=== PATIENT | female | born 1945 | race Caucasian/White ===

== ENCOUNTER 2017-10-14 11:35 | Emergency (ER) | payer MEDICARE ==
[~2017-10-14] VITALS: Ht 157.4 cm; Wt 47.3 kg
[2017-10-14 13:59] LABS: BASO % 0.4 % (0.0-1.0); EOS # 0.3 10*3/uL (0.0-0.4); EOS % 3.5 % (1.0-4.0); HEMATOCRIT 32.9 % (37.0-47.0); HEMOGLOBIN 10.3 g/dl (12.0-16.0); LYMPH # 1.4 10*3/uL (1.3-4.4); LYMPH % 17.7 % (27.0-41.0); MEAN CELL VOLUME 89.2 fl (81.0-99.0); MEAN CORPUSCULAR HGB 27.9 pg (27.0-31.0); MEAN CORPUSCULAR HGB CONC 31.3 g/dl (33.0-37.0); MEAN PLATELET VOLUME 9.7 fl (9.6-12.3); MONO # 0.7 10*3/uL (0.1-1.0); MONO % 8.1 % (3.0-9.0); NEUT # 5.6 10*3/uL (2.3-7.9); NEUT % 69.9 % (47.0-73.0); PLATELET COUNT AUTOMATED 285 10*3/uL (130-400); RED BLOOD COUNT 3.69 10*6/uL (4.10-5.10); RED CELL DISTRI WIDTH 14.7 % (0-14.5)
[2017-10-14 14:13] LABS: ALBUMIN 3.3 gm/dl (3.1-4.5); CREATININE 1.38 mg/dL (0.55-1.02); POTASSIUM 5.2 mmol/L (3.5-5.1)
[2017-10-14 17:17] LABS: ACT PARTIAL THROMBO TIME 23.2 SECONDS (20.8-31.5)
== END 2017-10-14 17:08 ==
LOC: ED 11:35
PROVIDERS: Physician Assistant
DX: I82.412 Acute embolism and thrombosis of left femoral vein (principal); F17.200 Nicotine dependence, unspecified, uncomplicated

== ENCOUNTER → 2019-01-01 | Outpatient (CLI) | payer MEDICARE ==
[~2019-01-01] MED LIST: ASPIR 8181 MG PO; ATENOLOL25 MG PO; COUMADIN7.5 M1 PO; DOXYCYCLINE MO100 M1 PO; HYDR25T PO; HYDROCHLOROTHIA25 M1 PO; KLOR-CON M1010 ME1 PO; LISINOPRIL10 M1 PO; LORATADINE10 M3 PO; METFORMIN ER500 MG PO; MUCINEX ER600 MG PO; PREDNISONE10 MG PO
[2019-01-01 10:12] LABS: BASO % 0.4 % (0.0-1.0); EOS # 0.1 10*3/uL (0.0-0.4); EOS % 1.3 % (1.0-4.0); HEMATOCRIT 35.8 % (37.0-47.0); HEMOGLOBIN 11.2 g/dl (12.0-16.0); LYMPH # 1.6 10*3/uL (1.3-4.4); LYMPH % 19.1 % (27.0-41.0); MEAN CELL VOLUME 92.3 fl (81.0-99.0); MEAN CORPUSCULAR HGB 28.9 pg (27.0-31.0); MEAN CORPUSCULAR HGB CONC 31.3 g/dl (33.0-37.0); MEAN PLATELET VOLUME 10.2 fl (9.6-12.3); MONO # 0.7 10*3/uL (0.1-1.0); MONO % 8.1 % (3.0-9.0); NEUT # 5.9 10*3/uL (2.3-7.9); NEUT % 70.9 % (47.0-73.0); PLATELET COUNT AUTOMATED 289 10*3/uL (130-400); RED BLOOD COUNT 3.88 10*6/uL (4.10-5.10); RED CELL DISTRI WIDTH 13.8 % (0-14.5); WHITE BLOOD COUNT 8.3 10*3/uL (4.8-10.8)
[2019-01-01 10:29] LABS: INTERNATIONAL NORM RATIO 2.9 (2.0-3.5)
[2019-01-01 10:33] LABS: CREATININE 1.69 mg/dL (0.55-1.02)
[2019-01-01 11:16] LABS: VITAMIN D, 25-HYDROXY 32.2 ng/mL (30-100)
== END | disposition home or self-care (01) ==
LOC: RESCLI 02:53 → LAB 02:53 → RESCLI 16:40
PROVIDERS: Internal Medicine
DX: E11.9 Type 2 diabetes mellitus without complications (principal); I10 Essential (primary) hypertension; E55.9 Vitamin D deficiency, unspecified; Z79.01 Long term (current) use of anticoagulants

== ENCOUNTER → 2019-04-01 | Outpatient (CLI) | payer MEDICARE ==
[~2019-04-01] MED LIST changes: +DOXYCYCLINE100 M3 PO; +NORVASC5 MG PO
[2019-04-01 15:22] LABS: INTERNATIONAL NORM RATIO 2.4 (2.0-3.5)
== END | disposition home or self-care (01) ==
LOC: LAB 13:05
PROVIDERS: Internal Medicine Nephrology
DX: Z79.01 Long term (current) use of anticoagulants (principal)

== ENCOUNTER → 2019-05-07 | Outpatient (CLI) | payer MEDICARE | LOC: RAD 16:50 | DX: J43.8 Other emphysema (principal); Z87.891 Personal history of nicotine dependence ==

== ENCOUNTER → 2019-06-08 | Outpatient (CLI) | payer MEDICARE ==
[~2019-06-08] MED LIST changes: -DOXYCYCLINE100 M3 PO; -NORVASC5 MG PO
== END | disposition home or self-care (01) ==
LOC: RESCLI 06-05 10:06
DX: Z09 Encounter for follow-up examination after completed treatment for conditions other than malignant neoplasm (principal); I12.9 Hypertensive chronic kidney disease with stage 1 through stage 4 chronic kidney disease, or unspecified chronic kidney disease; N18.3 Chronic kidney disease, stage 3 (moderate); E11.22 Type 2 diabetes mellitus with diabetic chronic kidney disease; J44.9 Chronic obstructive pulmonary disease, unspecified; F32.5 Major depressive disorder, single episode, in full remission; F17.200 Nicotine dependence, unspecified, uncomplicated; J30.2 Other seasonal allergic rhinitis; S72.001D Fracture of unspecified part of neck of right femur, subsequent encounter for closed fracture with routine healing; I82.502 Chronic embolism and thrombosis of unspecified deep veins of left lower extremity; L30.4 Erythema intertrigo; Z79.899 Other long term (current) drug therapy; Z79.84 Long term (current) use of oral hypoglycemic drugs; Z88.8 Allergy status to other drugs, medicaments and biological substances; X58.XXXD Exposure to other specified factors, subsequent encounter

== ENCOUNTER → 2019-06-10 | Outpatient (CLI) | payer MEDICARE ==
[2019-06-10 16:29] LABS: BASO % 0.1 % (0.0-1.0); HEMATOCRIT 40.8 % (37.0-47.0); HEMOGLOBIN 12.8 g/dl (12.0-16.0); LYMPH # 0.9 10*3/uL (1.3-4.4); LYMPH % 9.4 % (27.0-41.0); MEAN CELL VOLUME 90.5 fl (81.0-99.0); MEAN CORPUSCULAR HGB 28.4 pg (27.0-31.0); MEAN CORPUSCULAR HGB CONC 31.4 g/dl (33.0-37.0); MEAN PLATELET VOLUME 10.8 fl (9.6-12.3); MONO # 0.1 10*3/uL (0.1-1.0); MONO % 1.4 % (3.0-9.0); NEUT # 8.8 10*3/uL (2.3-7.9); NEUT % 88.6 % (47.0-73.0); PLATELET COUNT AUTOMATED 324 10*3/uL (130-400); RED BLOOD COUNT 4.51 10*6/uL (4.10-5.10); RED CELL DISTRI WIDTH 14.6 % (0-14.5); WHITE BLOOD COUNT 9.9 10*3/uL (4.8-10.8)
[2019-06-10 16:42] LABS: INTERNATIONAL NORM RATIO 2.1 (2.0-3.5)
[2019-06-10 16:57] LABS: ALBUMIN 3.5 gm/dl (3.1-4.5); CREATININE 2.2 mg/dL (0.55-1.02); POTASSIUM 5.9 mmol/L (3.5-5.1); TOTAL PROTEIN 6.8 gm/dL (6.4-8.2)
== END | disposition home or self-care (01) ==
LOC: RESCLI 00:51
PROVIDERS: Hospitalist
DX: I12.9 Hypertensive chronic kidney disease with stage 1 through stage 4 chronic kidney disease, or unspecified chronic kidney disease (principal); E11.22 Type 2 diabetes mellitus with diabetic chronic kidney disease; N18.3 Chronic kidney disease, stage 3 (moderate); J44.9 Chronic obstructive pulmonary disease, unspecified; F17.200 Nicotine dependence, unspecified, uncomplicated; Z79.899 Other long term (current) drug therapy; Z88.8 Allergy status to other drugs, medicaments and biological substances

== ENCOUNTER 2019-06-11 11:33 | Emergency (ER) | payer MEDICARE ==
[~2019-06-11] VITALS: Ht 157.4 cm; Wt 46.3 kg
--- NOTE | ~2019-06-11 | EKG ---
[place], [place] ELECTROCARDIOGRAM REPORT NAME: GEOFFREY BEGUM UNIT #: [id number] ROOM: DOCTOR: BRISA DRAFT REPORT BIRTHDATE: [birth year] [facility] Test Date: 2019-06-11 Test Time: 12:03:37 Pat Name: GEOFFREY BEGUM Department: Room: Gender: F Paid Internship: : 1945 Requested By: DELIO WATSON Order Number: [id number] Reading MD: Jared Pierson MD Measurements Intervals [place] Rate: 79 P: 90 NM: 126 QRS: 66 QRSD: 85 T: 67 QT: 371 QTc: 426 Interpretive Statements Sinus rhythm Right atrial enlargement Low voltage, extremity leads Minimal ST elevation, anterior leads Compared to ECG 05/29/2019 20:55:03 Atrial abnormality now present Sinus tachycardia no longer present ST (T wave) deviation still present Electronically Signed On 06-15-2019 8:38:27 PDT by Jared Pierson MD CM:EKGRPT:ELECTROCARDIOGRAM REPORT [id number] DELIO THOMPSON DRAFT REPORT DELIO WATSON DO
[~2019-06-11 11:33] MED LIST changes: -HYDR25T PO
[2019-06-11 12:03] LABS: BASO % 0.2 % (0.0-1.0); EOS % 0.4 % (1.0-4.0); HEMATOCRIT 42.3 % (37.0-47.0); HEMOGLOBIN 13.3 g/dl (12.0-16.0); LYMPH # 3.4 10*3/uL (1.3-4.4); LYMPH % 30.8 % (27.0-41.0); MEAN CELL VOLUME 91.2 fl (81.0-99.0); MEAN CORPUSCULAR HGB 28.7 pg (27.0-31.0); MEAN CORPUSCULAR HGB CONC 31.4 g/dl (33.0-37.0); MEAN PLATELET VOLUME 10.3 fl (9.6-12.3); MONO # 0.9 10*3/uL (0.1-1.0); MONO % 8.1 % (3.0-9.0); NEUT # 6.7 10*3/uL (2.3-7.9); NEUT % 60.1 % (47.0-73.0); PLATELET COUNT AUTOMATED 319 10*3/uL (130-400); RED BLOOD COUNT 4.64 10*6/uL (4.10-5.10); RED CELL DISTRI WIDTH 14.6 % (0-14.5); WHITE BLOOD COUNT 11.1 10*3/uL (4.8-10.8)
[2019-06-11 12:14] LABS: ACT PARTIAL THROMBO TIME 29.3 SECONDS (20.0-32.1)
[2019-06-11 12:21] LABS: ALBUMIN 3.5 gm/dl (3.1-4.5); ALKALINE PHOSPHATASE 85 U/L (45-117); BUN 65 mg/dl (7-24); CHLORIDE 106 mmol/L (98-107); CREATININE 2.23 mg/dL (0.55-1.02); LIPASE 228 U/L (73-393); SGOT/AST 13 IU/L (3-35); SGPT/ALT 21 U/L (12-78); SODIUM 136 mmol/L (136-145); TOTAL PROTEIN 6.7 gm/dL (6.4-8.2)
[2019-06-11 12:23] LABS: POTASSIUM 4.7 mmol/L (3.5-5.1); TROPONIN I < 0.015 ng/ml (<0.045)
== END 2019-06-11 13:34 | disposition home or self-care (01) ==
LOC: ED 11:33
PROVIDERS: Emergency Medicine
DX: E87.5 Hyperkalemia (principal); I12.9 Hypertensive chronic kidney disease with stage 1 through stage 4 chronic kidney disease, or unspecified chronic kidney disease; E11.22 Type 2 diabetes mellitus with diabetic chronic kidney disease; N18.3 Chronic kidney disease, stage 3 (moderate); J44.9 Chronic obstructive pulmonary disease, unspecified; I48.91 Unspecified atrial fibrillation; F17.210 Nicotine dependence, cigarettes, uncomplicated; Z79.4 Long term (current) use of insulin; Z79.899 Other long term (current) drug therapy; Z79.01 Long term (current) use of anticoagulants

== ENCOUNTER → 2019-06-15 | Outpatient (CLI) | payer MEDICARE ==
[~2019-06-15] MED LIST changes: +HYDR25T PO
[2019-06-15 16:37] LABS: BILIRUBIN NEGATIVE (NEGATIVE); BLOOD TRACE-INTACT (NEGATIVE); CLARITY CLEAR (CLEAR); COLOR YELLOW (YELLOW); GLUCOSE NEGATIVE (NEGATIVE); KETONE NEGATIVE (NEGATIVE); LEUKO ESTERASE 1+ (NEGATIVE); NITRITE NEGATIVE (NEGATIVE); SPECIFIC GRAVITY 1.015 (1.005-1.030); UROBILINOGEN 0.2 E.U./dl (0.2-1.0)
[2019-06-15 17:00] LABS: CREATININE 1.86 mg/dL (0.55-1.02); POTASSIUM 5.3 mmol/L (3.5-5.1)
[2019-06-15 17:10] LABS: BACTERIA 1+
== END | disposition home or self-care (01) ==
LOC: LAB 16:10
PROVIDERS: Emergency Medicine; Hospitalist
DX: E11.22 Type 2 diabetes mellitus with diabetic chronic kidney disease (principal); N18.9 Chronic kidney disease, unspecified; E87.5 Hyperkalemia

== ENCOUNTER 2019-06-24 14:54 | Emergency (ER) | payer MEDICARE ==
[~2019-06-24] VITALS: Ht 157.4 cm; Wt 47.2 kg
--- NOTE | ~2019-06-24 | EKG ---
[place], [place] ELECTROCARDIOGRAM REPORT NAME: GEOFFREY BEGUM UNIT #: [id number] ROOM: DOCTOR: EPIPHANY DRAFT REPORT BIRTHDATE: [birth year] [facility] Test Date: 2019-06-24 Test Time: 15:50:47 Pat Name: GEOFFREY BEGUM Department: Room: Gender: F Medical Billing Specialist: Estela Black : 1945 Requested By: ALAINA GEE DNP Order Number: [id number] Reading MD: Ok Lindquist MD Measurements Intervals [place] Rate: 97 P: 84 RI: 138 QRS: 58 QRSD: 75 T: 69 QT: 358 QTc: 455 Interpretive Statements Sinus rhythm Borderline low voltage, extremity leads Electronically Signed On 06-25-2019 5:36:18 PDT by Ok Lindquist MD CM:EKGRPT:ELECTROCARDIOGRAM REPORT [id number] ALAINA LEDEZMA DRAFT REPORT ALAINA GEE DNP
[~2019-06-24 14:54] MED LIST changes: -HYDR25T PO
[2019-06-24 15:47] LABS: BASO % 0.4 % (0.0-1.0); EOS # 0.3 10*3/uL (0.0-0.4); EOS % 3.9 % (1.0-4.0); HEMATOCRIT 31.9 % (37.0-47.0); HEMOGLOBIN 9.9 g/dl (12.0-16.0); LYMPH # 1.5 10*3/uL (1.3-4.4); LYMPH % 18.1 % (27.0-41.0); MEAN CELL VOLUME 92.7 fl (81.0-99.0); MEAN CORPUSCULAR HGB 28.8 pg (27.0-31.0); MEAN PLATELET VOLUME 9.1 fl (9.6-12.3); MONO # 0.6 10*3/uL (0.1-1.0); MONO % 6.7 % (3.0-9.0); NEUT # 5.9 10*3/uL (2.3-7.9); PLATELET COUNT AUTOMATED 309 10*3/uL (130-400); RED BLOOD COUNT 3.44 10*6/uL (4.10-5.10); RED CELL DISTRI WIDTH 14.5 % (0-14.5); WHITE BLOOD COUNT 8.5 10*3/uL (4.8-10.8)
[2019-06-24 16:03] LABS: ALKALINE PHOSPHATASE 108 U/L (45-117); BUN 24 mg/dl (7-24); CHLORIDE 110 mmol/L (98-107); CREATININE 1.64 mg/dL (0.55-1.02); LIPASE 157 U/L (73-393); SGOT/AST 10 IU/L (3-35); SGPT/ALT 15 U/L (12-78); SODIUM 141 mmol/L (136-145); TOTAL PROTEIN 6.9 gm/dL (6.4-8.2)
[2019-06-24 16:09] LABS: INTERNATIONAL NORM RATIO 3.1 (2.0-3.5)
[2019-06-24 16:13] LABS: TROPONIN I < 0.015 ng/ml (<0.045)
[2019-06-24 17:07] LABS: BILIRUBIN NEGATIVE (NEGATIVE); BLOOD TRACE-INTACT (NEGATIVE); CLARITY CLEAR (CLEAR); COLOR YELLOW (YELLOW); GLUCOSE NEGATIVE (NEGATIVE); KETONE NEGATIVE (NEGATIVE); LEUKO ESTERASE 1+ (NEGATIVE); NITRITE NEGATIVE (NEGATIVE); UROBILINOGEN 0.2 E.U./dl (0.2-1.0)
[2019-06-24 17:21] LABS: BACTERIA TRACE; EPITHELIAL CELLS 0-2; WBC 0-2 wbc/hpf (0-5)
[2019-06-24] MEDS ORDERED: LISINOPRIL10 M1 PO (17:41)
[2019-06-24] MEDS ORDERED: HYDR25T PO (17:41)
== END 2019-06-24 17:42 | disposition home or self-care (01) ==
LOC: ED 14:54
PROVIDERS: Nurse Practitioner Family
DX: R60.0 Localized edema (principal); I10 Essential (primary) hypertension; R06.02 Shortness of breath; J44.9 Chronic obstructive pulmonary disease, unspecified; E11.9 Type 2 diabetes mellitus without complications; F17.200 Nicotine dependence, unspecified, uncomplicated; Z79.899 Other long term (current) drug therapy; Z79.01 Long term (current) use of anticoagulants; Z79.82 Long term (current) use of aspirin; Z86.718 Personal history of other venous thrombosis and embolism

== ENCOUNTER 2019-07-11 11:34 | Inpatient (IN) | payer MEDICARE ==
[~2019-07-11] VITALS: Ht 157.4 cm; Wt 48.6 kg
[~2019-07-11 11:34] MED LIST changes: +HYDR25T PO
[2019-07-11 11:45] LABS: BASO % 0.3 % (0.0-1.0); EOS # 0.5 10*3/uL (0.0-0.4); EOS % 4.4 % (1.0-4.0); HEMATOCRIT 34.1 % (37.0-47.0); HEMOGLOBIN 10.7 g/dl (12.0-16.0); LYMPH # 1.8 10*3/uL (1.3-4.4); LYMPH % 15.3 % (27.0-41.0); MEAN CELL VOLUME 91.2 fl (81.0-99.0); MEAN CORPUSCULAR HGB 28.6 pg (27.0-31.0); MEAN CORPUSCULAR HGB CONC 31.4 g/dl (33.0-37.0); MONO # 0.6 10*3/uL (0.1-1.0); MONO % 4.8 % (3.0-9.0); NEUT # 8.6 10*3/uL (2.3-7.9); NEUT % 74.8 % (47.0-73.0); PLATELET COUNT AUTOMATED 334 10*3/uL (130-400); RED BLOOD COUNT 3.74 10*6/uL (4.10-5.10); RED CELL DISTRI WIDTH 15.2 % (0-14.5); WHITE BLOOD COUNT 11.5 10*3/uL (4.8-10.8)
[2019-07-11 11:51] VITALS: BP 105/48
[2019-07-11 12:15] VITALS: BP 110/52
--- NOTE | 2019-07-11 12:17 | NUR ---
PT PRESENTS SOB WITH POX IN THE 80'S ON ROOM AIR, PT IS NOT HOME O2 DEPENDENT. APPLIED 6L NC POX 98%.
[2019-07-11 12:24] LABS: ACT PARTIAL THROMBO TIME 29.1 SECONDS (20.0-32.1); INTERNATIONAL NORM RATIO 1.7 (2.0-3.5)
[2019-07-11 12:27] LABS: ALBUMIN 3.7 gm/dl (3.1-4.5); ALKALINE PHOSPHATASE 113 U/L (45-117); BUN 45 mg/dl (7-24); CHLORIDE 104 mmol/L (98-107); CREATININE 2.32 mg/dL (0.55-1.02); POTASSIUM 4.6 mmol/L (3.5-5.1); SGOT/AST 13 IU/L (3-35); SGPT/ALT 12 U/L (12-78); SODIUM 136 mmol/L (136-145); TOTAL PROTEIN 7.3 gm/dL (6.4-8.2)
[2019-07-11 12:28] LABS: TROPONIN I < 0.015 ng/ml (<0.045)
[2019-07-11 13:30] VITALS: BP 108/65
[2019-07-11 14:45] VITALS: BP 129/81
--- NOTE | 2019-07-11 14:45 | NUR ---
A 73, admitted to , under the services of JEREMIE Young DO with a diagnosis of COPD EXACERBATION. Chief complaint is SOB. Patient arrived via bed from ER. Monitor applied. Initial assessment completed. Vital signs taken and recorded. JEREMIE YOUNG DO notified of admission to the unit. Orders received. See assessment for past medical history, medications and allergies. Patient and/or family oriented to unit. [facility] visitation policy reviewed. Clothing/patient valuable form completed. DAVIS DOMINIQUE
[2019-07-11 16:00] VITALS: BP 128/50
[2019-07-11 20:00] VITALS: BP 118/56
--- NOTE | 2019-07-11 20:30 | NUR ---
RESTING IN BED WITH HOB ELEVATED & EYES CLOSED. 02 BEING MAINTAINED. NO DISTRESS NOTED. CALL LIGHT WITHIN REACH.
--- NOTE | 2019-07-11 22:00 | NUR ---
RESTING IN BED; AROUSES EASILY TO VERBAL STIMULI. 02 BEING MAINTAINED. PT. VOICES NO C/O AT THIS TIME. CALL LIGHT WITHIN REACH.
[2019-07-12] VITALS: BP 125/53
--- NOTE | 2019-07-12 02:00 | NUR ---
PT. HAS A DRY FREQUENT COUGH; REQUESTING AN AEROSOL TX. CALLED RESPIRATORY.
--- NOTE | 2019-07-12 02:30 | NUR ---
RESTING IN BED; NO VOICED C/O AT THIS TIME. CALL LIGHT WITHIN REACH.
[2019-07-12 04:10] VITALS: BP 131/60
--- NOTE | 2019-07-12 04:10 | NUR ---
PT. AWAKE & ALERT. PT. HAS A FREQUENT HARSH MOIST COUGH PRODUCTIVE FOR WHITE SPUTUM PER PT. 02 BEING MAINTAINED AT 4LITERS & PULSE OX IS 98%. DENIES ANY DISCOMFORT OR CHEST PAIN AT THIS TIME. WILL CONTINUE TO MONITOR. CALL LIGHT WITHIN REACH.
--- NOTE | 2019-07-12 04:17 | NUR ---
CALLED DR. RAMOS PERTAINING TO PATIENT HAVING A 7 RUN BEAT OF VTACH. NO NEW ORDERS RECEIVED.
[2019-07-12 06:23] LABS: BASO % 0.3 % (0.0-1.0); EOS % 0.1 % (1.0-4.0); HEMATOCRIT 30.7 % (37.0-47.0); HEMOGLOBIN 9.3 g/dl (12.0-16.0); LYMPH # 1.1 10*3/uL (1.3-4.4); LYMPH % 14.8 % (27.0-41.0); MEAN CELL VOLUME 91.6 fl (81.0-99.0); MEAN CORPUSCULAR HGB 27.8 pg (27.0-31.0); MEAN CORPUSCULAR HGB CONC 30.3 g/dl (33.0-37.0); MEAN PLATELET VOLUME 10.4 fl (9.6-12.3); MONO # 0.7 10*3/uL (0.1-1.0); NEUT # 5.6 10*3/uL (2.3-7.9); NEUT % 75.4 % (47.0-73.0); PLATELET COUNT AUTOMATED 260 10*3/uL (130-400); RED BLOOD COUNT 3.35 10*6/uL (4.10-5.10); RED CELL DISTRI WIDTH 15.2 % (0-14.5); WHITE BLOOD COUNT 7.4 10*3/uL (4.8-10.8)
[2019-07-12 06:54] LABS: ACT PARTIAL THROMBO TIME 29.4 SECONDS (20.0-32.1)
[2019-07-12 06:58] LABS: ALBUMIN 3.3 gm/dl (3.1-4.5); CREATININE 2.04 mg/dL (0.55-1.02); POTASSIUM 5.1 mmol/L (3.5-5.1); TOTAL PROTEIN 6.5 gm/dL (6.4-8.2)
[2019-07-12 07:12] LABS: PHOSPHOROUS 3.7 mg/dL (2.5-4.9); THYROID STIM HORMONE (HS) 0.374 uIU/ml (0.358-4.75)
[2019-07-12 08:16] LABS: VITAMIN D, 25-HYDROXY 19.6 ng/mL (30-100)
[2019-07-12 12:00] VITALS: BP 132/59; BP 138/59
[2019-07-12 16:00] VITALS: BP 116/60
--- NOTE | 2019-07-12 19:43 | NUR ---
PATIENT RESTING IN BED WITH NO NEEDS. WHEEZES NOTED. BED IN LOWEST POSITION, CALL LIGHT IN REACH
[2019-07-12 20:00] VITALS: BP 131/58
--- NOTE | 2019-07-12 23:54 | NUR ---
24 HR chart check completed.
[2019-07-13] VITALS: BP 159/68
--- NOTE | 2019-07-13 01:24 | NUR ---
PATIENT RESTING IN BED WITH EYES CLOSED. RESPS EASY AND REGULAR. BED IN LOW POSITION, CALL LIGHT IN REACH
[2019-07-13 06:40] LABS: BASO % 0.1 % (0.0-1.0); EOS % 0.1 % (1.0-4.0); HEMATOCRIT 31.9 % (37.0-47.0); HEMOGLOBIN 9.8 g/dl (12.0-16.0); LYMPH # 1.3 10*3/uL (1.3-4.4); MEAN CELL VOLUME 91.7 fl (81.0-99.0); MEAN CORPUSCULAR HGB 28.2 pg (27.0-31.0); MEAN CORPUSCULAR HGB CONC 30.7 g/dl (33.0-37.0); MEAN PLATELET VOLUME 10.5 fl (9.6-12.3); MONO # 0.8 10*3/uL (0.1-1.0); MONO % 8.7 % (3.0-9.0); NEUT # 6.7 10*3/uL (2.3-7.9); NEUT % 75.8 % (47.0-73.0); PLATELET COUNT AUTOMATED 254 10*3/uL (130-400); RED BLOOD COUNT 3.48 10*6/uL (4.10-5.10); RED CELL DISTRI WIDTH 15.2 % (0-14.5); WHITE BLOOD COUNT 8.9 10*3/uL (4.8-10.8)
[2019-07-13 06:58] LABS: ALBUMIN 3.4 gm/dl (3.1-4.5); CREATININE 1.83 mg/dL (0.55-1.02); POTASSIUM 4.5 mmol/L (3.5-5.1); TOTAL PROTEIN 6.7 gm/dL (6.4-8.2)
[2019-07-13 08:00] VITALS: BP 156/62
--- NOTE | 2019-07-13 10:10 | NUR ---
Occupational therapy evaluation completed on floor 5 with full evaluation and POC to follow. Patient precautions include fall risk, 1L O2, and wheeled walker use. Per OT evaluation and POC, OTR recommend home with home health PT/OT. Patient would benefit from continued OT treatment to increase independence in ADLs, functional mobility/transfers, and strength. Patient's evaluation complexity is low, 42240. Thank you for the referral. Betina Calix, OTR/L
--- NOTE | 2019-07-13 10:10 | NUR ---
PHYSICAL THERAPY Physical therapy evaluation complete, 5E. Full evaluation/details to follow. Moderate complexity evaluation (64484) per chart review and evaluation. Recommend PT to progress with gait, transfers, and increased safety per POC. Recommend home health PT/nursing at discharge. Thank you. Anya Gan,PT,DPT.
[2019-07-13 12:00] VITALS: BP 146/70
[2019-07-13 13:20] LABS: INTERNATIONAL NORM RATIO 2.3 (2.0-3.5)
[2019-07-13 16:00] VITALS: BP 156/69
[2019-07-13 20:00] VITALS: BP 149/66
--- NOTE | 2019-07-13 20:00 | NUR ---
PATIENT RESTING IN BED WITH EYES CLOSED. EYES OPEN UPON ENTERING. NO S/S OF DISTRESS. NO SOB NOTED AT REST ON 2L O2. DENIES PAIN AT THIS TIME. NO STATED COMPLAINTS. BED IN LOWEST LOCKED POSITION AND CALL LIGHT WITHIN REACH. WILL CONTINUE TO MONITOR.
--- NOTE | 2019-07-13 20:44 | NUR ---
UPON ENTERING ROOM PT STATES HER IV IS BLEEDING. ON ASSESSMENT THE SITE IS LEAKING. PT STATES SHE CAUGHT IT ON HER SLEEVE. IV D/C AND A NEW ONE STARTED IN R WRIST. NO FAILED ATTEMPTS. GREAT BLOOD RETURN AND FLUSHES WELL.
[2019-07-14] VITALS: BP 155/73
--- NOTE | 2019-07-14 04:42 | NUR ---
PATIENT ASSISTED OOB UP TO BSC. NEW DISPOSABLE BRIEFS PROVIDED PER PT REQUEST, SHE IS EXPERIENCING SOME INCONTINENCE W/ COUGHING. O2 EXTENTION TUBING ALSO BROUGHT INTO ROOM AT THIS TIME PER REQUEST. P PATIENT REMINDED TO SPIT IN CUP FOR SPUTUM SAMPLE TO BE SENT. VERBALIZES UNDERSTANDING. STATES SPUTUM IS CURRENTLY WHITE/IBRAHIM/YELLOW. DENIES ANY NEEDS AT PRESENT TIME. WILL MONITOR. CALL LIGHT IN REACH.
[2019-07-14 06:21] LABS: BASO % 0.3 % (0.0-1.0); EOS % 0.1 % (1.0-4.0); HEMATOCRIT 33.9 % (37.0-47.0); HEMOGLOBIN 10.5 g/dl (12.0-16.0); LYMPH # 1.4 10*3/uL (1.3-4.4); LYMPH % 12.4 % (27.0-41.0); MEAN CELL VOLUME 89.9 fl (81.0-99.0); MEAN CORPUSCULAR HGB 27.9 pg (27.0-31.0); MEAN PLATELET VOLUME 10.3 fl (9.6-12.3); MONO % 8.7 % (3.0-9.0); NEUT # 9.1 10*3/uL (2.3-7.9); NEUT % 78.1 % (47.0-73.0); PLATELET COUNT AUTOMATED 250 10*3/uL (130-400); RED BLOOD COUNT 3.77 10*6/uL (4.10-5.10); RED CELL DISTRI WIDTH 15.1 % (0-14.5); WHITE BLOOD COUNT 11.7 10*3/uL (4.8-10.8)
[2019-07-14 06:53] LABS: CREATININE 1.59 mg/dL (0.55-1.02); POTASSIUM 4.1 mmol/L (3.5-5.1)
--- NOTE | 2019-07-14 07:00 | NUR ---
ARRIVED ON SHIFT, INTRODUCED TO PATIENT, BEDSIDE REPORT RECEIVED, PATIENT CURRENTLY RECEING NEBULIZER TREATMENT, WHITE BOARD UPDATED, NO NEEDS VOICED AT THIS TIME.
--- NOTE | 2019-07-14 07:41 | NUR ---
Shift chart check completed.
[2019-07-14 08:00] VITALS: BP 150/70
--- NOTE | 2019-07-14 10:36 | NUR ---
PHYSICAL THERAPY Patient was approached multiple times this am for therapy visit and was eating breakfast on first attempt. sleeping 2nd attempt and upon 3rd attempt stated she was still very tired. Patient request for therapist to return this pm and will continue per POC as able. Mazin Guillaume, WIRELESS OPERATOR
--- NOTE | 2019-07-14 11:38 | NUR ---
Shale Processing Technician in to talk to patient. Patient states lives at HOME with HAS APPARTMENT IN HER SONS HOUSE. There are FEW steps in the home. Physician: [facility]: HAD OV UNTIL LAST SATURDAY. Patient's level of ADLs: INDEPENDENT Patient has working utilities: YES DME: NEBULIZER Follow-up physician's appointment after d/c: WILL BE MADE BY HOSPITALIST NURSE DIRECTOR ON DISCHARGE Does patient want to access PORTAL?: NO Discharge plan PT LIVES IN AN APARTMENT AT HER SONS HOUSE AND IS INDEPENDENT IN HER CARE. DENIES THAT SHE WILL HAVE ANY NEEDS ON DISCHARGE. STATES SHE IS INDEPENDENT AT HOME. WILL CONTINUE TO FOLLOW. WILL HAVE A RIDE HOME.. EBEN SU
--- NOTE | 2019-07-14 11:51 | NUR ---
PT WOULD LIKE TO HAVE [facility] AGAIN ON DISCHARGE.
[2019-07-14 12:00] VITALS: BP 153/79
--- NOTE | 2019-07-14 12:50 | NUR ---
CALL PLACED TO DR. LAGUERRE, ADVISED THAT PATIENTS HEART RATE HAS BEEN RUNNING IN THE 140'S SHE VERSED SHE WILL BE UP TO SEE PATIENT.
--- NOTE | 2019-07-14 14:48 | NUR ---
REFERRAL AND FACE TO FACE FORM FAXED TO [facility].
--- NOTE | 2019-07-14 15:00 | NUR ---
PATIENT IV INFILTRATED IN RIGHT HAND, IV REMOVED, ATTEMPT X 1 RIGHT ARM,VEIN BLEW, REQUESTED ANOTHER NURSE TRY, CONNER Calvillo RN, WAS ABLE TO PUT ONE IN LEFT WRIST.
[2019-07-14 16:00] VITALS: BP 164/71
[2019-07-14] MEDS ORDERED: ATENOLOL25 MG PO (19:44)
[2019-07-14 19:45] VITALS: BP 182/80
--- NOTE | 2019-07-14 19:46 | NUR ---
NOTIFIED OF PATIENT SOUNDING VERY MOIST AND COUGHING UP WHITE/CLEAR FROTHY SPUTUM. ALSO AWARE OF BP 182/80 MANUALLY. DISCUSSED CURRENT MEDICATIONS VS HOME MEDICATIONS. MED REC CONFIRMED WITH DAUGHTER ANKIT, PATIENT DID NOT KNOW DOSAGES RIGHT OFF HAND. TO REVIEW HOME MED REC & COME UP TO SEE PATIENT.
--- NOTE | 2019-07-14 19:55 | NUR ---
HERE TO SEE PATIENT. DISCUSSED HOME MEDICATIONS. INSTRUCTED TO ORDER PO ATENOLOL & PO HCTZ PER HOME SCHEDULE, FIRST DOSE TO BE GIVEN TONIGHT.
[2019-07-15] VITALS (19 sets, daily range): BP systolic 137–210; BP diastolic 51–90
--- NOTE | 2019-07-15 00:55 | NUR ---
NOTIFIED OF PATIENT'S BP 178/88 MANUALLY. DISCUSSED EARLIER ATENOLOL & HCTZ GIVEN. INSTRUCTED TO REPEAT BLOOD PRESSURE IN 10 MINUTES AND CALL WITH RESULTS.
--- NOTE | 2019-07-15 01:20 | NUR ---
CALLED WITH REPEAT BLOOD PRESSURE 184/82 MANUALLY, CHECKED BY TWO RNs. HR CURRENTLY 80S AT THIS TIME. NO MEDICATION ORDERS RECEIVED. INSTRUCTED TO CHECK VITALS AT 4 AM.
--- NOTE | 2019-07-15 04:10 | NUR ---
NOTIFIED OF BLOOD PRESSURE 202/86 MANUALLY. INSTRUCTED TO REPEAT BLOOD PRESSURE USING MACHINE. RN NOTIFIED THAT AUTO BP CUFF READ 177/90 PRIOR TO TAKING MANUAL. INSTRUCTED TO REPEAT BLOOD PRESSURE USING MACHINE IN ALL LIMBS & CALL BACK.
--- NOTE | 2019-07-15 04:25 | NUR ---
NOTIFIED OF ELEVATED BP RECHECKED IN LIMBS WITH AUTO BP CUFF PER ORDERS: R ARM- 198/84 L ARM- 189/72 R LEG- 137/90 L LEG- 179/86 INSTRUCTED TO REPEAT A BLOOD PRESSURE WITH A REGULAR ADULT SIZE CUFF ON ONE LIMB WITH THE MACHINE.
--- NOTE | 2019-07-15 04:28 | NUR ---
PATIENT UP TO BATHROOM. WILL RECHECK BP WITH REGULAR ADULT CUFF AFTER PATIENT HAS RETURNED TO BED AND HAD TIME TO SIT FOR A FEW MINUTES.
--- NOTE | 2019-07-15 04:42 | NUR ---
NOTIFIED OF BP TAKEN WITH REGULAR ADULT SIZE BP CUFF. MACHINE- 191/84 MANUAL- 200/84
--- NOTE | 2019-07-15 05:18 | NUR ---
2.5 MG PO NORVASC ADMINISTERED PER ORDER. WILL MONITOR EFFECTIVENESS. CALL LIGHT IN REACH.
[2019-07-15 06:10] LABS: BASO % 0.1 % (0.0-1.0); EOS % 0.1 % (1.0-4.0); HEMATOCRIT 33.4 % (37.0-47.0); HEMOGLOBIN 10.4 g/dl (12.0-16.0); LYMPH # 1.4 10*3/uL (1.3-4.4); LYMPH % 13.2 % (27.0-41.0); MEAN CELL VOLUME 89.3 fl (81.0-99.0); MEAN CORPUSCULAR HGB 27.8 pg (27.0-31.0); MEAN CORPUSCULAR HGB CONC 31.1 g/dl (33.0-37.0); MEAN PLATELET VOLUME 10.4 fl (9.6-12.3); MONO # 0.7 10*3/uL (0.1-1.0); NEUT # 8.2 10*3/uL (2.3-7.9); NEUT % 78.9 % (47.0-73.0); PLATELET COUNT AUTOMATED 250 10*3/uL (130-400); RED BLOOD COUNT 3.74 10*6/uL (4.10-5.10); RED CELL DISTRI WIDTH 15.1 % (0-14.5); WHITE BLOOD COUNT 10.4 10*3/uL (4.8-10.8)
[2019-07-15 06:29] LABS: CREATININE 1.54 mg/dL (0.55-1.02); POTASSIUM 4.4 mmol/L (3.5-5.1)
--- NOTE | 2019-07-15 06:40 | NUR ---
NOTIFED OF REPEAT BLOOD PRESSURE 198/82 AND THEN 202/84 MANUALLY FOLLOWING PO NORVASC ADMINISTRATION. NO NEW MEDICATION ORDERS RECEIVED. INSTRUCTED TO RECHECK PRESSURE IN 30 MINUTES AND CALL RESIDENT WITH RESULTS.
[2019-07-15 06:49] LABS: INTERNATIONAL NORM RATIO 2.8 (2.0-3.5)
--- NOTE | 2019-07-15 07:00 | NUR ---
ARRIVED ON SHIFT BEDSIDE REPORT RECEIVED, PER REPORT PATIENTS BP HAS BEEN UP MUCH OF THE NIGHT, BP CHECKED MANUALLY WAS 210/88 PATIENT WAS TO GET LABATALOL, HER IV HAD JUST BECOME OCCLUDED AND NEEDED TO BE CHANGED. WHITE BOARD UPDATED. NO NEEDS VOICED BY PATIENT.
--- NOTE | 2019-07-15 07:25 | NUR ---
10 MG IV LABETOLOL ADMINISTERED SLOWLY PER ORDER FOR ELEVATED BP. ADMINISTRATION DELAYED DUE TO IV SITE TO L WRIST LEAKING & PAINFUL. PATIENT RECEIVED IV SOLUMEDROL EARLIER AROUND 0515 THROUGH SITE WITHOUT ISSUE. SITE DISCONTINUED AND NEW IV SITE INITIATED IN RAC. PATIENT ENCOURAGED TO NOTIFY AM SHIFT RN IF NEW OR WORSENING SYMPTOMS ARISE.
--- NOTE | 2019-07-15 07:57 | NUR ---
NOTIFIED THAT IV LABETOLOL ADMINISTRATION WAS DELAYED DUE TO LOSS OF IV ACCESS. AWARE THAT IV LABETOLOL WAS GIVEN PER ORDER & THAT DAY SHIFT RN WILL RECHECK BLOOD PRESSURE AND NOTIFY DR IF STILL ELEVATED.
--- NOTE | 2019-07-15 08:08 | NUR ---
CALL PLACED TO HOSPITALIST LINE, SPOKE WITH DR. LAGUERRE, ADVISED BP 30 MINUTES POST LABATALOL WAS 200/90, SHE VERSED SHE WILL BE UP TO SEE PATIENT.
--- NOTE | 2019-07-15 08:42 | NUR ---
ORDER RECEIVED FOR CONSULT FROM DOCTOR HE. CALL PLACED TO DR. HE, ADVISED OF CONSULT, AND THAT PATIENT IS TO HAVE RENAL ULTRASOUND.
--- NOTE | 2019-07-15 08:46 | NUR ---
Shift chart check completed.
--- NOTE | 2019-07-15 09:57 | NUR ---
PATIENTS BLOOD PRESSURE NOW 180/60, DR. YATES CAME IN I HAD CHECKED BP, ADVISED OF RESULT.
--- NOTE | 2019-07-15 10:18 | NUR ---
PT CONTINUES TO STATE SHE WILL RETURN HOME ON DISCHARGE WITH SON AND [facility]. WILL CONTINUE TO FOLLOW.
--- NOTE | 2019-07-15 13:25 | NUR ---
PHYSICAL THERAPY Patient was approached several times this date for therapy and declined all treatment stating various reasons to not participate. Patient educated on benefits of physcial therapy, however reported she was having a medical procedure tomorrow and might reconsider therapy at that time. Will continue per POC as able. Mazin Guillaume, GLOVE OPERATOR
--- NOTE | 2019-07-15 19:41 | NUR ---
PT ASLEEP IN BED AT THIS TIME. RESPIRATIONS EASY. NO S/S OF DISTRESS NOTED. O2 IN USE VIA 2L NC. WILL MONITOR. CALL LIGHT IN REACH.
--- NOTE | 2019-07-15 20:59 | NUR ---
IV LABETOLOL ADMINISTERED SLOWLY AT THIS TIME FOR ELEVATED BP 168/54 MANUALLY. WILL MONITOR EFFECTIVENESS. PT DENIES ANY NEW/WORSENING SYMPTOMS. WILL MONITOR. CALL LIGHT IN REACH.
[2019-07-15 21:57] LABS: URINE CREATININE RANDOM 30.9 mg/dL
[2019-07-15 21:59] LABS: BILIRUBIN NEGATIVE (NEGATIVE); BLOOD NEGATIVE (NEGATIVE); CLARITY CLEAR (CLEAR); COLOR YELLOW (YELLOW); GLUCOSE NEGATIVE (NEGATIVE); KETONE NEGATIVE (NEGATIVE); LEUKO ESTERASE NEGATIVE (NEGATIVE); NITRITE NEGATIVE (NEGATIVE); UROBILINOGEN 0.2 E.U./dl (0.2-1.0)
[2019-07-15 22:25] LABS: BACTERIA TRACE; EPITHELIAL CELLS 0-2; RBC 0-2 rbc/hpf (0-2); WBC 0-2 wbc/hpf (0-5)
[2019-07-16] VITALS (12 sets, daily range): BP systolic 118–192; BP diastolic 44–89
--- NOTE | 2019-07-16 02:21 | NUR ---
IV LABETOLOL PUSHED SLOWLY PER ORDER FOR ELEVATED BP 174/78 MANUALLY IN LEFT ARM. PATIENT ASYMPTOMATIC. EARLIER IV LABETOLOL INEFFECTIVE. IF 2ND DOSE ALSO INEFFECTIVE, WILL NOTIFY PER HER INSTRUCTION.
--- NOTE | 2019-07-16 04:18 | NUR ---
CALLED AT THIS TIME PATIENT'S BP 192/86 MANUALLY. BLOOD PRESSURE VERIFIED BY TWO RNs. DISCUSSED 2 DOSES OF LABETOLOL GIVEN PER PRN ORDER FOR SBP > 160. INSTRUCTED TO INCREASE AMLODIPINE TO 10 MG DAILY AND GIVE DOSE NOW.
[2019-07-16 07:10] LABS: BASO % 0.1 % (0.0-1.0); HEMATOCRIT 36.3 % (37.0-47.0); HEMOGLOBIN 11.4 g/dl (12.0-16.0); LYMPH % 9.1 % (27.0-41.0); MEAN CELL VOLUME 89.4 fl (81.0-99.0); MEAN CORPUSCULAR HGB 28.1 pg (27.0-31.0); MEAN CORPUSCULAR HGB CONC 31.4 g/dl (33.0-37.0); MEAN PLATELET VOLUME 10.7 fl (9.6-12.3); MONO # 0.6 10*3/uL (0.1-1.0); MONO % 4.9 % (3.0-9.0); NEUT # 9.7 10*3/uL (2.3-7.9); NEUT % 85.3 % (47.0-73.0); PLATELET COUNT AUTOMATED 240 10*3/uL (130-400); RED BLOOD COUNT 4.06 10*6/uL (4.10-5.10); WHITE BLOOD COUNT 11.3 10*3/uL (4.8-10.8)
[2019-07-16 07:21] LABS: ALBUMIN 3.6 gm/dl (3.1-4.5); CREATININE 1.53 mg/dL (0.55-1.02); POTASSIUM 4.3 mmol/L (3.5-5.1)
--- NOTE | 2019-07-16 07:52 | NUR ---
DR. COELLO AWARE OF LAST INR RESULT. PT DOWN IN SURGERY FOR BRONCH THIS MORNING
--- NOTE | 2019-07-16 07:58 | NUR ---
Shift chart check completed.
--- NOTE | 2019-07-16 09:03 | NUR ---
REPORT RECEIVED FROM SURGERY, PT RECEIVING BREATHING TREATMENT THEN KAT RETURN TO ROOM
--- NOTE | 2019-07-16 09:05 | NUR ---
PHYSICAL THERAPY Patient was out of her room this am for a medical procdure and not available for therapy at this time. Will continue per POC as able. Mazin Guillaume, BUDDER
--- NOTE | 2019-07-16 09:25 | NUR ---
PT RETURNED FROM BRONCH, REQUESTED TESSALON PEARLES, GIVEN. SEE EMAR. DR. YATES IN TO SEE PATIENT, OKAY TO D/C TELE MONITOR
--- NOTE | 2019-07-16 10:12 | NUR ---
CASE MANAGMENT MET WITH PT, PT HAD A BRONCH THIS AM. DENIES SHE WILL HAVE NEEDS ON DISCHARGE. WILL DISCHARGE HOME WITH SON. WILL CONTINUE TO FOLLOW.
--- NOTE | 2019-07-16 13:10 | NUR ---
PHYSICAL THERAPY Patient seen this pm 1:1 for therapy visit and was supine in bed upon therapist arrival. Patient reports feeling tired / weak following am surgical procedure and presents with continuos O2-2L via NC. Patient transfers supine to stand CGA and ambulates with use of wh walker, 30'x 2, SBA, demonstrating slow, steady huy and Good safety awareness. Patient returned to supine in bed and remained with call light, tray table and telephone. Will continue per POC as tolerated, total treatment time 14 minutes. Mazin Guillaume, BELLHOP CAPTAIN
--- NOTE | 2019-07-16 15:10 | NUR ---
PHYSICAL THERAPY CO-SIGN I approve of the Physical Therapy notes written above. TAE CASTLE PT,DPT
--- NOTE | 2019-07-16 20:15 | NUR ---
AAOX3 SITTING UP IN BED WITH HOB ELEVATED TO FACILITATE EASE OF BREATHING. 02 INTACT AT 2LPM VIA NASAL CANNULA. LUNGS VERY DIMINISHED BILATERALLY WITH POOR AIR EXCHANGE. PT. STATES THAT SHE HAS NO COUGH AT THIS TIME & IS FEELING BETTER SINCE HER BRONCH. PT. STATES THAT SHE HOPES TO BE DISCHARGED TOMORROW. HEP LOCK INTACT TO RIGHT ANTECUBITAL; SITE ASYMPTOMATIC. CALL LIGHT WITHIN REACH.
[2019-07-17] VITALS: BP 119/55
--- NOTE | 2019-07-17 03:00 | NUR ---
RESTING IN BED RECEIVING AERSOL TX. VOICES NO C/O; NO DISTRESS NOTED. CALL LIGHT WITHIN REACH.
[2019-07-17 07:00] LABS: INTERNATIONAL NORM RATIO 1.6 (2.0-3.5)
[2019-07-17 08:00] VITALS: BP 128/68
--- NOTE | 2019-07-17 10:18 | NUR ---
PULSE OX ON R/A REST 92%, B/P 128/68, HEART RATE 88. PT. AMBULATED ON R/A, PULSE OX ON R/A WITH AMBULATION 90%. PT. RETURNED TO ROOM, RECOVERY PULSE OX ON R/A 91%. HEART RATE 93, B/P 144/48. RN AND DR. RAMOS NOTIFIED.
[2019-07-17] MEDS ORDERED: DOXYCYCLINE100 M3 PO (10:27)
[2019-07-17] MEDS ORDERED: PREDNISONE10 MG PO (10:27)
[2019-07-17] MEDS ORDERED: NORVASC5 MG PO (10:27)
--- NOTE | 2019-07-17 10:55 | NUR ---
PT STATES SHE WILL RETRUN HOME TO HER SONS HOUSE WHERE SHE HAS HER OWN APARTMENT. REFERRAL WAS SENT TO [facility]. WILL CONTINUE TO FOLLOW. WILL HAVE A RIDE HOME PER PT.
[2019-07-17 11:09] LABS: CREATININE,URINE 30.6 mg/dL (Not Estab.); MICRO ALBUMIN/CRE RATIO 49.7 (0.0-30.0)
--- NOTE | 2019-07-17 11:45 | NUR ---
PT DISCHARGED AT THIS TIME. IV REMOVED AND PRESSURE DRESSING APPLIED. VERBALIZED UNDERSTANDING OF DISCHARGE INSTRUCTIONS WITH DAUGHTER PRESENT.
[2019-07-17 15:05] LABS: ACID FAST SPEC PROCESSING Concentration (.)
[2019-08-29 07:09] LABS: ACID FAST CULTURE Negative (.)
== END 2019-07-17 11:45 | disposition home health service (06) | DRG 871 ==
LOC: ED 11:34 → EDHOLD 13:54 → 5E 13:54
PROVIDERS: Emergency Medicine; Hospitalist; Internal Medicine; Internal Medicine Critical Care Medicine; Internal Medicine Nephrology; ADMIT Internal Medicine
DX: A41.9 Sepsis, unspecified organism (principal); J96.01 Acute respiratory failure with hypoxia; N17.0 Acute kidney failure with tubular necrosis; I48.91 Unspecified atrial fibrillation; N18.3 Chronic kidney disease, stage 3 (moderate); F32.9 Major depressive disorder, single episode, unspecified; I12.9 Hypertensive chronic kidney disease with stage 1 through stage 4 chronic kidney disease, or unspecified chronic kidney disease; E11.22 Type 2 diabetes mellitus with diabetic chronic kidney disease; E11.65 Type 2 diabetes mellitus with hyperglycemia; D64.9 Anemia, unspecified; J43.9 Emphysema, unspecified; J20.9 Acute bronchitis, unspecified; I16.0 Hypertensive urgency; I48.0 Paroxysmal atrial fibrillation; E86.9 Volume depletion, unspecified; B96.89 Other specified bacterial agents as the cause of diseases classified elsewhere; Z66 Do not resuscitate; Z51.5 Encounter for palliative care; Z79.899 Other long term (current) drug therapy; Z79.82 Long term (current) use of aspirin; Z87.81 Personal history of (healed) traumatic fracture; Z87.01 Personal history of pneumonia (recurrent); Z90.49 Acquired absence of other specified parts of digestive tract; Z83.3 Family history of diabetes mellitus; Z80.8 Family history of malignant neoplasm of other organs or systems; Z79.01 Long term (current) use of anticoagulants; Z87.891 Personal history of nicotine dependence; Z86.718 Personal history of other venous thrombosis and embolism

== ENCOUNTER 2019-07-30 14:36 | Emergency (ER) | payer MEDICARE ==
[~2019-07-30] VITALS: Wt 48.5 kg
[~2019-07-30 14:36] MED LIST changes: +DOXYCYCLINE100 M3 PO; +NORVASC5 MG PO
[2019-07-30 15:16] LABS: BASO % 0.1 % (0.0-1.0); EOS # 0.3 10*3/uL (0.0-0.4); EOS % 2.2 % (1.0-4.0); HEMATOCRIT 31.4 % (37.0-47.0); HEMOGLOBIN 9.7 g/dl (12.0-16.0); LYMPH # 1.4 10*3/uL (1.3-4.4); LYMPH % 11.4 % (27.0-41.0); MEAN CELL VOLUME 92.1 fl (81.0-99.0); MEAN CORPUSCULAR HGB 28.4 pg (27.0-31.0); MEAN CORPUSCULAR HGB CONC 30.9 g/dl (33.0-37.0); MEAN PLATELET VOLUME 9.9 fl (9.6-12.3); MONO # 1.2 10*3/uL (0.1-1.0); MONO % 9.7 % (3.0-9.0); NEUT # 9.1 10*3/uL (2.3-7.9); NEUT % 76.1 % (47.0-73.0); PLATELET COUNT AUTOMATED 192 10*3/uL (130-400); RED BLOOD COUNT 3.41 10*6/uL (4.10-5.10)
[2019-07-30 15:35] LABS: INTERNATIONAL NORM RATIO 6.8 (2.0-3.5)
[2019-07-30 15:38] LABS: CREATININE 1.78 mg/dL (0.55-1.02); POTASSIUM 4.6 mmol/L (3.5-5.1); TOTAL PROTEIN 6.2 gm/dL (6.4-8.2)
== END 2019-07-30 16:53 | disposition home or self-care (01) ==
LOC: ED 14:36
PROVIDERS: Nurse Practitioner Family
DX: D68.59 Other primary thrombophilia (principal); E11.9 Type 2 diabetes mellitus without complications; I10 Essential (primary) hypertension; J44.9 Chronic obstructive pulmonary disease, unspecified; F17.200 Nicotine dependence, unspecified, uncomplicated; Z79.01 Long term (current) use of anticoagulants; Z79.82 Long term (current) use of aspirin; Z79.899 Other long term (current) drug therapy; Z86.718 Personal history of other venous thrombosis and embolism

== ENCOUNTER → 2019-08-02 | Outpatient (CLI) | payer MEDICARE ==
[2019-08-02 14:48] LABS: INTERNATIONAL NORM RATIO 2.1 (2.0-3.5)
== END | disposition home or self-care (01) ==
LOC: LAB 14:00
PROVIDERS: Internal Medicine Nephrology
DX: Z79.01 Long term (current) use of anticoagulants (principal)

== ENCOUNTER → 2019-08-07 | Outpatient (CLI) | payer MEDICARE ==
[2019-08-07 13:38] LABS: INTERNATIONAL NORM RATIO 2.7 (2.0-3.5)
== END | disposition home or self-care (01) ==
LOC: LAB 00:39 → RESCLI 00:39
PROVIDERS: Internal Medicine
DX: Z79.01 Long term (current) use of anticoagulants (principal)

== ENCOUNTER 2019-08-13 16:23 | Emergency (ER) | payer MEDICARE ==
[~2019-08-13] VITALS: Ht 157.4 cm; Wt 50.8 kg
[2019-08-13 18:21] LABS: ALBUMIN 3.3 gm/dl (3.1-4.5); CREATININE 1.88 mg/dL (0.55-1.02); TOTAL PROTEIN 7.3 gm/dL (6.4-8.2)
== END 2019-08-13 19:04 | disposition home or self-care (01) ==
LOC: ED 16:23
PROVIDERS: Emergency Medicine
DX: J44.1 Chronic obstructive pulmonary disease with (acute) exacerbation (principal); R60.0 Localized edema; I12.9 Hypertensive chronic kidney disease with stage 1 through stage 4 chronic kidney disease, or unspecified chronic kidney disease; E11.22 Type 2 diabetes mellitus with diabetic chronic kidney disease; N18.3 Chronic kidney disease, stage 3 (moderate); I48.91 Unspecified atrial fibrillation; F17.200 Nicotine dependence, unspecified, uncomplicated; Z79.01 Long term (current) use of anticoagulants; Z79.82 Long term (current) use of aspirin; Z79.899 Other long term (current) drug therapy; Z79.4 Long term (current) use of insulin; Z96.642 Presence of left artificial hip joint

== ENCOUNTER → 2019-09-29 | Outpatient (CLI) | payer MEDICARE | END | disposition home or self-care (01) | LOC: RAD 09:44 | DX: J44.1 Chronic obstructive pulmonary disease with (acute) exacerbation (principal); I10 Essential (primary) hypertension; J44.9 Chronic obstructive pulmonary disease, unspecified; E11.9 Type 2 diabetes mellitus without complications ==

== ENCOUNTER → 2019-11-16 | Outpatient (CLI) | payer MEDICARE ==
[2019-11-16 16:04] LABS: BASO % 0.4 % (0.0-1.0); EOS # 0.3 10*3/uL (0.0-0.4); EOS % 3.9 % (1.0-4.0); HEMATOCRIT 38.5 % (37.0-47.0); HEMOGLOBIN 11.9 g/dl (12.0-16.0); LYMPH # 1.3 10*3/uL (1.3-4.4); LYMPH % 16.6 % (27.0-41.0); MEAN CELL VOLUME 91.9 fl (81.0-99.0); MEAN CORPUSCULAR HGB 28.4 pg (27.0-31.0); MEAN CORPUSCULAR HGB CONC 30.9 g/dl (33.0-37.0); MEAN PLATELET VOLUME 9.3 fl (9.6-12.3); MONO # 0.5 10*3/uL (0.1-1.0); MONO % 6.2 % (3.0-9.0); NEUT # 5.7 10*3/uL (2.3-7.9); NEUT % 72.5 % (47.0-73.0); PLATELET COUNT AUTOMATED 243 10*3/uL (130-400); RED BLOOD COUNT 4.19 10*6/uL (4.10-5.10); RED CELL DISTRI WIDTH 14.6 % (0-14.5); WHITE BLOOD COUNT 7.9 10*3/uL (4.8-10.8)
[2019-11-16 16:32] LABS: ALBUMIN 3.9 gm/dl (3.1-4.5); CREATININE 2.11 mg/dL (0.55-1.02); POTASSIUM 4.7 mmol/L (3.5-5.1); TOTAL PROTEIN 7.6 gm/dL (6.4-8.2)
== END | disposition home or self-care (01) ==
LOC: RESCLI 01:12
PROVIDERS: Internal Medicine
DX: I12.9 Hypertensive chronic kidney disease with stage 1 through stage 4 chronic kidney disease, or unspecified chronic kidney disease (principal); E11.22 Type 2 diabetes mellitus with diabetic chronic kidney disease; N18.9 Chronic kidney disease, unspecified; J30.2 Other seasonal allergic rhinitis; I82.502 Chronic embolism and thrombosis of unspecified deep veins of left lower extremity; J44.9 Chronic obstructive pulmonary disease, unspecified; F32.5 Major depressive disorder, single episode, in full remission; M25.559 Pain in unspecified hip; Z79.899 Other long term (current) drug therapy

== ENCOUNTER 2019-12-04 22:49 | Inpatient (IN) | payer MEDICARE ==
[~2019-12-04] VITALS: Ht 157.4 cm; Wt 56.4 kg
[2019-12-04 22:52] VITALS: BP 196/94
[2019-12-04 23:28] LABS: BASO % 0.3 % (0.0-1.0); EOS # 1.1 10*3/uL (0.0-0.4); EOS % 8.3 % (1.0-4.0); HEMATOCRIT 38.1 % (37.0-47.0); HEMOGLOBIN 11.6 g/dl (12.0-16.0); LYMPH # 1.1 10*3/uL (1.3-4.4); MEAN CELL VOLUME 92.3 fl (81.0-99.0); MEAN CORPUSCULAR HGB 28.1 pg (27.0-31.0); MEAN CORPUSCULAR HGB CONC 30.4 g/dl (33.0-37.0); MEAN PLATELET VOLUME 9.7 fl (9.6-12.3); MONO # 1.3 10*3/uL (0.1-1.0); MONO % 9.7 % (3.0-9.0); NEUT # 9.7 10*3/uL (2.3-7.9); NEUT % 73.3 % (47.0-73.0); PLATELET COUNT AUTOMATED 316 10*3/uL (130-400); RED BLOOD COUNT 4.13 10*6/uL (4.10-5.10); RED CELL DISTRI WIDTH 14.9 % (0-14.5); WHITE BLOOD COUNT 13.2 10*3/uL (4.8-10.8)
[2019-12-04 23:44] VITALS: BP 144/79
[2019-12-04 23:45] LABS: INTERNATIONAL NORM RATIO 0.9 (2.0-3.5)
[2019-12-04 23:48] LABS: ALBUMIN 4.1 gm/dl (3.1-4.5); ALKALINE PHOSPHATASE 103 U/L (45-117); BUN 43 mg/dl (7-24); CHLORIDE 107 mmol/L (98-107); CREATININE 2.15 mg/dL (0.55-1.02); POTASSIUM 4.8 mmol/L (3.5-5.1); SGOT/AST 8 IU/L (3-35); SGPT/ALT 14 U/L (12-78); SODIUM 140 mmol/L (136-145); TOTAL PROTEIN 7.7 gm/dL (6.4-8.2)
[2019-12-04 23:51] LABS: TROPONIN I < 0.015 ng/ml (<0.045)
[2019-12-05 01:14] VITALS: BP 153/79
[2019-12-05 01:45] VITALS: BP 152/65
--- NOTE | 2019-12-05 02:30 | NUR ---
PATIENT UNSURE OF MEDS. DR. Debbi PALACIOS WANTS PHARMACY CALLED OR TO CHECK WITH FAMILY MEMBERS ABOUT HOME MEDICATIONS IN AM.
--- NOTE | 2019-12-05 03:25 | NUR ---
PATIENT WANTS TO REST AT PRESENT TIME. STATED SHE WILL PUT FREDDY HOSE IN AM WHEN SHE GETS CLEANED UP.
[2019-12-05 05:32] LABS: ALBUMIN 3.3 gm/dl (3.1-4.5); CREATININE 1.95 mg/dL (0.55-1.02); PHOSPHOROUS 3.2 mg/dL (2.5-4.9); POTASSIUM 5.1 mmol/L (3.5-5.1); TOTAL PROTEIN 6.6 gm/dL (6.4-8.2)
[2019-12-05 05:40] LABS: THYROID STIM HORMONE (HS) 0.546 uIU/ml (0.358-4.75)
[2019-12-05 05:48] LABS: HEMATOCRIT 34.6 % (37.0-47.0); HEMOGLOBIN 10.5 g/dl (12.0-16.0); MEAN CELL VOLUME 91.5 fl (81.0-99.0); MEAN CORPUSCULAR HGB 27.8 pg (27.0-31.0); MEAN CORPUSCULAR HGB CONC 30.3 g/dl (33.0-37.0); MEAN PLATELET VOLUME 9.9 fl (9.6-12.3); PLATELET COUNT AUTOMATED 252 10*3/uL (130-400); RED BLOOD COUNT 3.78 10*6/uL (4.10-5.10); RED CELL DISTRI WIDTH 14.6 % (0-14.5); WHITE BLOOD COUNT 9.5 10*3/uL (4.8-10.8)
--- NOTE | 2019-12-05 07:10 | NUR ---
Jessy instructed and performed independently with good effort.
[2019-12-05] MEDS ORDERED: Ipratropium Brom3 ML INH (07:28)
[2019-12-05] MEDS ORDERED: HYDR12.5C PO (07:30)
[2019-12-05] MEDS ORDERED: ELIQUIS2.5 M1 PO (07:33)
[2019-12-05] MEDS ORDERED: METOPROLOL SUCC25 M2 PO (07:34)
[2019-12-05] MEDS ORDERED: VITAMIN D32000 UNI1 PO (07:35)
[2019-12-05] MEDS ORDERED: PROAIR HFA8.5 GM INH (07:36)
[2019-12-05] MEDS ORDERED: ZESTRIL10 MG PO (07:38)
[2019-12-05] MEDS ORDERED: ZOLOFT50 MG PO (07:39)
--- NOTE | 2019-12-05 07:41 | NUR ---
MED LIST UPDATED PER MED CLAIM HISTORY - WILL DISCUSS WITH THE FAMILY PATIENT IS UNSURE & PER NIGHT NURSE THE LIST IS INCOMPLETE..
[2019-12-05 07:47] LABS: VITAMIN D, 25-HYDROXY 47.1 ng/mL (30-100)
[2019-12-05 07:51] LABS: PLATELET SUFFICIENCY NORMAL (NORMAL); TOTAL CELLS COUNTED 100 #CELLS
[2019-12-05 08:00] VITALS: BP 160/60
[2019-12-05] MEDS ORDERED: ADV 500/50 INH (08:36)
--- NOTE | 2019-12-05 08:37 | NUR ---
MED LIST UP TO DATE
--- NOTE | 2019-12-05 08:41 | NUR ---
MEDICATIONS DISCUSSED WITH PATIENT & DAUGHTER (RN IN ER).. PER THE DISCUSSION THE PATIENT IS NOT USING HER ADVIAR PRESCRIBED (SAYS SHE FORGETS).. BUT THE PATIENT ADMITS TO USING HER DUONEB TREATMENT & INHALER MORE THAN PRESCRIBED. FOR EXAMPLE WHEN SHE WALKS TO THE BATHROOM & COMES BACK SOB SHE WILL USE INHALER OR AEROSAL EVEN IF SHE JUST TOOK IT. NOT ALWAY COMPLIANT WITH ZOLOFT EITHER (SAYS THINKS IT IS FOR NAUSEA AT TIMES)... FLOW CHART TO KEEP RECORD OF TIMES SHE TAKES MEDS MAY HELP HER DISCUSSED.
--- NOTE | 2019-12-05 10:34 | NUR ---
[facility] NOTIFIED OF CONSULT
--- NOTE | 2019-12-05 10:37 | NUR ---
DR COELLO AWARE OF CONSULT
[2019-12-05 12:00] VITALS: BP 145/60
[2019-12-05 15:24] LABS: ABG BASE EXCESS -4.7 mmol/L (-2.0-2.0); ARTERIAL BLOOD GAS PH 7.296 (7.35-7.45)
[2019-12-05 16:00] VITALS: BP 152/66
--- NOTE | 2019-12-05 16:03 | NUR ---
Patient placed on NIV per Dr. Raman's orders. Patient is tolerating well.
--- NOTE | 2019-12-05 18:05 | NUR ---
ABGS DRAWN AND SENT TO LAB. PATIENT TAKEN OFF OF BIPAP TO EAT MEAL. PLACED ON 2L SPO2 97% AND PATIENT IS COMFORTABLE.
[2019-12-05 18:09] LABS: ARTERIAL BLOOD GAS PH 7.375 (7.35-7.45)
--- NOTE | 2019-12-05 18:33 | NUR ---
DR COELLO CALLED WITH [facility] RESULTS - NO NEW ORDERS
--- NOTE | 2019-12-05 19:10 | NUR ---
MORPHINE GIVEN FOR ANXIETY & HEADACHE WHILE ON BIPAP - REASSURANCE GIVEN
[2019-12-05 20:00] VITALS: BP 155/74
--- NOTE | 2019-12-05 20:37 | NUR ---
PATIENT STATES MORPHINE EFFECTIVE FOR HEADACHE.
--- NOTE | 2019-12-05 22:14 | NUR ---
PATIENT RESTING AT THIS TIME, APPEARING COMFORTABLE. PATIENT ON BIPAP.
[2019-12-06] VITALS: BP 160/76
--- NOTE | 2019-12-06 06:48 | NUR ---
PATIENT REQUESTING OFF BIPAP, C/O SORE THROAT. PT PLACED ON 4L NC TOLERATED FOR A FEW MINUTES AND NOW BACK ON BIPAP.
--- NOTE | 2019-12-06 07:06 | NUR ---
respiratory notified pt requesting treatment
[2019-12-06 07:48] LABS: BASO % 0.1 % (0.0-1.0); HEMATOCRIT 33.6 % (37.0-47.0); HEMOGLOBIN 10.4 g/dl (12.0-16.0); LYMPH # 0.5 10*3/uL (1.3-4.4); MEAN CELL VOLUME 91.1 fl (81.0-99.0); MEAN CORPUSCULAR HGB 28.2 pg (27.0-31.0); MEAN PLATELET VOLUME 9.6 fl (9.6-12.3); MONO # 0.5 10*3/uL (0.1-1.0); MONO % 6.3 % (3.0-9.0); NEUT # 6.3 10*3/uL (2.3-7.9); NEUT % 86.1 % (47.0-73.0); PLATELET COUNT AUTOMATED 243 10*3/uL (130-400); RED BLOOD COUNT 3.69 10*6/uL (4.10-5.10); RED CELL DISTRI WIDTH 14.6 % (0-14.5); WHITE BLOOD COUNT 7.3 10*3/uL (4.8-10.8)
[2019-12-06 08:00] VITALS: BP 142/66
[2019-12-06 08:05] LABS: CREATININE 1.92 mg/dL (0.55-1.02); POTASSIUM 4.9 mmol/L (3.5-5.1)
--- NOTE | 2019-12-06 08:30 | NUR ---
Car Shagger in to talk to patient. Patient states lives at home in an apartment in the basement of her son's home. There are 10 steps in the home. Physician: [facility]: [facility] Patient's level of ADLs: INDEPENDENT Patient has working utilities: YES DME: walker, nebulizer Follow-up physician's appointment after d/c: will be made by the hospitalist nurse director upon discharge Does patient want to access PORTAL?: no Discharge plan discussed with patient. She lives in an apartment in her son's basement. She is normally independent in her ADLs and ambulation but think she will have to start using her walker. Discussed home health care services and she is agreeable. When provided with a list of agencies she chose [facility] as she has had them in the past. When medically stable she will be discharged to home with [facility] services. She states her son will provide transportation on discharge. TAE GARCÍA
--- NOTE | 2019-12-06 08:51 | NUR ---
PT SITTING UP EATING BREAKFAST. NO DISTRESS NOTED. WILL MONITOR DTR AT BEDSIDE
[2019-12-06 12:00] VITALS: BP 156/64
[2019-12-06 16:00] VITALS: BP 146/45
[2019-12-06 20:00] VITALS: BP 148/55
--- NOTE | 2019-12-06 22:59 | NUR ---
PRN RESTORIL GIVEN FOR PT COMPLAINTS OF SLEEPLESSNESS. BIPAP ALSO PUT ON PATIENT AT THIS TIME. CALL LIGHT WITHIN REACH, WILL MONITOR
--- NOTE | 2019-12-06 22:59 | NUR ---
PRN RESTORIL APPEARS EFFECTIVE, PT SLEEPING
[2019-12-07] VITALS: BP 139/51; BP 146/80
--- NOTE | 2019-12-07 02:47 | NUR ---
PATIENT REMAINS ASLEEP. BIPAP REMAINS INTACT. NO DISTRESS NOTED. CALL LIGHT WITHIN REACH
--- NOTE | 2019-12-07 05:20 | NUR ---
PT STILL SLEEPING, BIPAP STILL INTACT. CALLL LIGHT WITHIN REACH
--- NOTE | 2019-12-07 05:25 | NUR ---
24 HR chart check completed.
--- NOTE | 2019-12-07 06:18 | NUR ---
PATIENT TAKEN OFF BIPAP AT THIS TIME. NASAL CANNULA REAPPLIED. CALL LIGHT WIHTIN REACH, LINENS CHANGED
[2019-12-07 06:24] LABS: BASO % 0.1 % (0.0-1.0); HEMATOCRIT 34.9 % (37.0-47.0); HEMOGLOBIN 10.6 g/dl (12.0-16.0); LYMPH # 0.7 10*3/uL (1.3-4.4); LYMPH % 7.3 % (27.0-41.0); MEAN CELL VOLUME 92.3 fl (81.0-99.0); MEAN CORPUSCULAR HGB CONC 30.4 g/dl (33.0-37.0); MEAN PLATELET VOLUME 10.3 fl (9.6-12.3); MONO # 0.6 10*3/uL (0.1-1.0); MONO % 6.2 % (3.0-9.0); NEUT # 8.1 10*3/uL (2.3-7.9); PLATELET COUNT AUTOMATED 247 10*3/uL (130-400); RED BLOOD COUNT 3.78 10*6/uL (4.10-5.10); RED CELL DISTRI WIDTH 14.5 % (0-14.5); WHITE BLOOD COUNT 9.4 10*3/uL (4.8-10.8)
[2019-12-07 06:25] LABS: CREATININE 1.83 mg/dL (0.55-1.02); POTASSIUM 4.8 mmol/L (3.5-5.1)
[2019-12-07 07:35] VITALS: BP 132/70
--- NOTE | 2019-12-07 07:35 | NUR ---
ASSESSMENT DOCUMENTATION COMPLETED. NO S/S OF DISTRESS AT THIS TIME. PT SITTING UP IN BED WAITING ON BREAKFAST. MARISABEL BUSBY SPNRCC
--- NOTE | 2019-12-07 08:02 | NUR ---
GEOFFREY BEGUM [id number] Please refer to the physician's history and physical for past medical history, comorbid conditions, and allergies. Diagnosis: RESP FAILURE, SEPSIS,COPD EXACERBATION Mariusz Score: 17,AT RISK WOUND DESCRIPTIONS: PATIENT'S RIGHT HEEL RED AND BLANCHABLE AT TIME OF ASSESSMENT. NO OPEN AREAS, DRAINAGE NOTED AT TIME OF ASSESSMENT. PATIENT DENIES PAIN TO THIS AREA. PATIENT STATES THIS AREA IS DUE TO HER USING HER HEELS TO PUSH HER SELF UP IN BED. PATIENT WAS AGREEABLE TO HEEL RAISER PRO BOOTS FOR PROTECTION. Surface the patient is resting on: Position Pro SKIN PREVENTION RECOMMENDATION: 1. Pressure redistribution support surface as appropriate 2. Elevate heels 3. Remove boots/TEDS every shift and reapply 4. Head of bed 30 degrees as tolerated 5. Assess nutrition and hydration 6. Manage moisture 7. Avoid the use of containment devices while in bed 8. Use absorptive products on surfaces limit layers of linens on bed 9. Turn and reposition every 1-2 hours in bed and every 1 hour in chair as tolerated 10. Weight shifts every 15 minutes while up in chair 11. Offloading with pillows or device to keep heels elevated off bed 12. Monitor skin at least every shift 13. Inspect under medical devices twice a day WOUND TREATMENT RECOMMENDATIONS: HEEL RAISER PRO BOOTS WHILE IN BED.
--- NOTE | 2019-12-07 08:15 | NUR ---
DR. COELLO IN TO SEE PT . STATES SHE IS OK FOR DISCHARGE.
--- NOTE | 2019-12-07 08:45 | NUR ---
PT RESTING IN BED WITH HOB ELEVATED. OXYGEN IN USE. RESP-EASY AND REGULAR AT THIS TIME. NO C/O AT THIS TIME. CALL LIGHT IN REACH. STUDENT NURSE WITH PT TODAY ALSO.
--- NOTE | 2019-12-07 09:00 | NUR ---
case management visits with patient, daughter present, daughter stated patient would return home when medically stable, she has a nebulizer but no home oxygen, daughter and patient were ok with [facility], case management will notify [facility] when patient is medically stable for discharge
--- NOTE | 2019-12-07 10:00 | NUR ---
PT NAPPING UPON ENTERING ROOM. ADMINISTERED MEDS AND ATTENDED TO ANY NEEDS. NO S/S OF DISTRESS AT THIS TIME. MARISABEL BUSBY SPKENZIE
--- NOTE | 2019-12-07 10:13 | NUR ---
SPOKE WITH JEROME REGARDING PALLIATIVE CARE CONSULT.
--- NOTE | 2019-12-07 10:22 | NUR ---
Faxed palliative care referral to [facility] and notified palliative care nurse.
--- NOTE | 2019-12-07 10:29 | NUR ---
Dr. Partida notified of wound care recommendations.
--- NOTE | 2019-12-07 10:30 | NUR ---
Nutritional Support Services Note: [place] is good for meals,she is eating 100% of 1800cal diabetic diet as ordered. Ht.5'2 Wt.125#. IBW 110#. Reddened heel noted no open areas. Continue to encourage good intake of meals. Will follow if needed. No other Nutrition intervention needed at this time. Mariama Seo Rdn Ld
[2019-12-07 11:45] VITALS: BP 158/75
--- NOTE | 2019-12-07 11:45 | NUR ---
ASSESSMENT COMPLETED AND DOCUMENTED. PT RESTING IN BED WAITING ON LUNCH AND VISITING WITH DAUGHTER. NO COMPLAINTS AT THIS TIME. MARISABEL BUSBY SPARLINCC
--- NOTE | 2019-12-07 13:06 | NUR ---
PT SLEEPING UPON ENTERING ROOM. NO COMPLAINTS PAIN OR S/S OF DISTRESS AT THIS TIME. REPORT GIVEN TO CASSIDY ADAIR. MARISABEL BUSBY SPARLINCC
[2019-12-07 16:00] VITALS: BP 145/71
--- NOTE | 2019-12-07 16:10 | NUR ---
PT RESTING IN BED. RESP-EASY AND REGULAR. NO C/O AT THIS TIME. CALL LIGHT IN REACH. OXYGEN IN USE. SEE SHIFT ASSESSMENT.
[2019-12-07 20:00] VITALS: BP 148/60
--- NOTE | 2019-12-07 22:20 | NUR ---
PLACED PATIENT ON BIPAP FOR HS
[2019-12-08] VITALS: BP 149/73
--- NOTE | 2019-12-08 07:41 | NUR ---
PT NOT ON BIPAP AT THIS TIME
[2019-12-08 08:00] VITALS: BP 144/60
--- NOTE | 2019-12-08 09:00 | NUR ---
case management visits with patient, she will return home with OV, no other needs at this time
[2019-12-08 12:00] VITALS: BP 154/74
--- NOTE | 2019-12-08 13:18 | NUR ---
case management faxed patient's information to [facility] for when patient is medically stable for discharge
--- NOTE | 2019-12-08 13:45 | NUR ---
Occupational therapy orders received and OT evaluation completed in full on floor five. Patient precautions include fall risk, ww use, 2LO2, SOB, weakness. Per OT eval, patient would benefit from a SNF. Patient does not have home O2. Patient would benefit from continued OT treatment to maximize safety and independence with ADLs, functional mobility, and transfers. Patient complexity is low, 33810. Thank you for the referral. Betina Calix, OTR/L
--- NOTE | 2019-12-08 15:25 | NUR ---
PHYSICAL THERAPY [place] completed moderate level of complexity 61349 recomend SNF at discharge full report to follow PT to work on transfers, amb, strenghting, steps Stacey Carter PT
[2019-12-08 16:00] VITALS: BP 177/71
[2019-12-08 20:00] VITALS: BP 129/56
--- NOTE | 2019-12-08 23:30 | NUR ---
PO RESTORIL ADMINISTERED PER PRN ORDER FOR C/O INSOMNIA. PT DENIES ANY OTHER NEEDS AT THIS TIME. WILL MONITOR. CALL LIGHT IN REACH.
[2019-12-09] VITALS: BP 141/59
--- NOTE | 2019-12-09 02:43 | NUR ---
PT ASLEEP IN BED. RESPIRATIONS EASY. NO S/S OF DISTRESS NOTED. BIPAP IN USE AT 30% FiO2. WILL MONITOR. CALL LIGHT IN REACH.
--- NOTE | 2019-12-09 03:25 | NUR ---
NO S/S OF DISTRESS NOTED.
--- NOTE | 2019-12-09 04:32 | NUR ---
PT ASLEEP IN BED. BIPAP IN USE.
[2019-12-09 08:00] VITALS: BP 136/60
--- NOTE | 2019-12-09 08:40 | NUR ---
PHYSICAL THERAPY Patient seen this am 1:1 for therapy visit and was resting supine in bed following breakfast, upon therapist arrival. Patient identified by name / and reports no c/o's at this time. OT physician assistant was present for observation only and patient on continuous O2-2L via NC. Patient transfers supine to sit EOB with MIN A, then sit to stand CGA x 1. Patient ambulates with use of wh walker, CGA, 50'x 2, demonstrating slow, steady huy, decreased stride and very cautious step sequence during all 90/180 turns. Patient tolerated eyes open / closed balance ex without LOB and single leg stance, tolerating L side 3 seconds and R side only 1 second before LOB. Patient returned to bedside chair with increased fatigue and remained with call light, tray table, telephone and body alarm. Will continue per POC as tolerated, total treatment time 17 minutes. Mazin Guillaume, MANAGER WINTER
--- NOTE | 2019-12-09 09:00 | NUR ---
case management visits with patient, discussed with her physical therapy recommendation of a short term skilled for rehab prior to returning home, patient stated she would do whatever her daughters thougth would be best for her, meeting/event planner will contact patient's daughter regarding SNF
--- NOTE | 2019-12-09 09:13 | NUR ---
OT NOTE Pt was seen this A.M. 1:1 for 24 minute OT session. Upon arrival pt was supine in bed. Pt identified by name and and had no complaints at this time. Pt presented to therapy with continuous 2L-O2 via NC which she remained on throughout the entire session. Pt transferred supine to sit EOB with SBA. While sitting EOB pt donned B socks with SBA. Sit to stand completed from bed level with CGA for safety followed by functional mobility to the bathroom with CGA and use of w/w. There she transferred on/off standard commode with SBA and use of grab bar. Clothing management completed with CGA due to being unsteady without UE support increasing risk of falls and toilet hygiene completed with distant supervision while seated. She then stood sink side while washing her hands with CGA, throughout while standing without UE support pt had LOB backwards and one to the R while crossing midline that required Con to correct. Functional mobility was then completed back to the EOB. Challenged pt's dynamic standing balance needed for increased I and enhanced safety in self care tasks. While weight shifting, crossing midline, and reaching over all planes. Pt was able to maintain F standing balance throughout. Pt was left sitting reclined in the recliner with call light in hand, tray table in place, and phone in reach. Continue with rec D/C plan to SNF. LISHA Levy/Blanca
[2019-12-09 12:00] VITALS: BP 174/68
--- NOTE | 2019-12-09 12:12 | NUR ---
Patient and daughter Julia agreeable to snf placement; asking for rehab suites. Contacted facility and faxed referral. There is one bed opening today. Facililty is reviewing referra, waiting on acceptance.
--- NOTE | 2019-12-09 13:44 | NUR ---
Patient accepted to Rehab suites, hospital exemption completed, 3 night stay completed. Patient is ok to go when medically stable for discharge.
[2019-12-09] MEDS ORDERED: PREDNISONE10 MG PO (14:00)
[2019-12-09] MEDS ORDERED: AVPAK AZITHROM250 M1 PO (14:00)
[2019-12-09] MEDS ORDERED: OMNICEF300 MG PO (14:00)
--- NOTE | 2019-12-09 14:45 | NUR ---
Patient is discharged to Rehab suites via [facility] at 4PM. NH, nursing/freight forwarder and daughter Julia all notified.
--- NOTE | 2019-12-09 17:30 | NUR ---
patient picked up by [facility] ambulance and transported to rehab [facility]. heplock discontinued. o2 in place @ 2l. patient transported off floor.
--- NOTE | 2019-12-10 07:34 | NUR ---
PHYSICAL THERAPY CO-SIGN I approve of the Physical Therapy notes written above. Stacey Carter PT
--- NOTE | 2019-12-10 11:24 | NUR ---
OCCUPATIONAL THERAPY CO-SIGN I approve of the Occupational Therapy notes written above. JUVENTINO SILVA OTR/Blanca
== END 2019-12-09 18:04 | disposition other institution (70) | DRG 871 ==
LOC: ED 22:49 → 4E 12-05 00:24 → EDHOLD 12-05 00:24 → 4E 12-05 00:45 → 5E 12-07 19:00
PROVIDERS: Emergency Medicine Emergency Medical Services; Hospitalist; Internal Medicine; Internal Medicine Critical Care Medicine; Student in an Organized Health Care Education/Training Program; ADMIT Emergency Medicine
PROC: 5A09357 Assistance with Respiratory Ventilation, Less than 24 Consecutive Hours, Continuous Positive Airway Pressure (ICD-10-PCS; principal; 2019-12-05)
PROC: 5A09357 Assistance with Respiratory Ventilation, Less than 24 Consecutive Hours, Continuous Positive Airway Pressure (ICD-10-PCS; 2019-12-06)
PROC: 5A09357 Assistance with Respiratory Ventilation, Less than 24 Consecutive Hours, Continuous Positive Airway Pressure (ICD-10-PCS; 2019-12-08)
DX: A41.9 Sepsis, unspecified organism (principal); N17.0 Acute kidney failure with tubular necrosis; J96.01 Acute respiratory failure with hypoxia; J96.02 Acute respiratory failure with hypercapnia; J44.1 Chronic obstructive pulmonary disease with (acute) exacerbation; F33.2 Major depressive disorder, recurrent severe without psychotic features; I48.21 Permanent atrial fibrillation; Z51.5 Encounter for palliative care; R65.20 Severe sepsis without septic shock; Z66 Do not resuscitate; N18.3 Chronic kidney disease, stage 3 (moderate); I12.9 Hypertensive chronic kidney disease with stage 1 through stage 4 chronic kidney disease, or unspecified chronic kidney disease; L89.611 Pressure ulcer of right heel, stage 1; E11.65 Type 2 diabetes mellitus with hyperglycemia; I16.0 Hypertensive urgency; D64.9 Anemia, unspecified; F41.9 Anxiety disorder, unspecified; E83.41 Hypermagnesemia; J20.9 Acute bronchitis, unspecified; Z87.891 Personal history of nicotine dependence; Z79.01 Long term (current) use of anticoagulants; Z86.718 Personal history of other venous thrombosis and embolism; Z90.49 Acquired absence of other specified parts of digestive tract; Z80.9 Family history of malignant neoplasm, unspecified; Z79.82 Long term (current) use of aspirin; Z79.899 Other long term (current) drug therapy

== ENCOUNTER → 2019-12-22 | Outpatient (CLI) | payer MEDICARE ==
[~2019-12-22] MED LIST changes: +ADV 500/50 INH; +AVPAK AZITHROM250 M1 PO; +ELIQUIS2.5 M1 PO; +HYDR12.5C PO; +Ipratropium Brom3 ML INH; +METOPROLOL SUCC25 M2 PO; +OMNICEF300 MG PO; +PROAIR HFA8.5 GM INH; +VITAMIN D32000 UNI1 PO; +ZESTRIL10 MG PO; +ZOLOFT50 MG PO
== END | disposition home or self-care (01) ==
LOC: RESCLI 05:40
DX: Z09 Encounter for follow-up examination after completed treatment for conditions other than malignant neoplasm (principal); J44.9 Chronic obstructive pulmonary disease, unspecified; H61.22 Impacted cerumen, left ear; F41.9 Anxiety disorder, unspecified; F32.9 Major depressive disorder, single episode, unspecified; I82.502 Chronic embolism and thrombosis of unspecified deep veins of left lower extremity; I12.9 Hypertensive chronic kidney disease with stage 1 through stage 4 chronic kidney disease, or unspecified chronic kidney disease; E11.22 Type 2 diabetes mellitus with diabetic chronic kidney disease; N18.9 Chronic kidney disease, unspecified; Z79.899 Other long term (current) drug therapy; Z90.49 Acquired absence of other specified parts of digestive tract; Z87.891 Personal history of nicotine dependence

== ENCOUNTER → 2020-02-22 | Outpatient (CLI) | payer MEDICARE | END | disposition home or self-care (01) | LOC: LAB 13:36 | DX: M19.042 Primary osteoarthritis, left hand (principal); J44.9 Chronic obstructive pulmonary disease, unspecified; M25.539 Pain in unspecified wrist; R07.81 Pleurodynia ==

== ENCOUNTER → 2020-06-24 | Outpatient (CLI) | payer MEDICARE | END | disposition home or self-care (01) | LOC: RESCLI 01:49 | PROVIDERS: Internal Medicine | DX: J44.9 Chronic obstructive pulmonary disease, unspecified (principal); I10 Essential (primary) hypertension; E11.9 Type 2 diabetes mellitus without complications; I82.502 Chronic embolism and thrombosis of unspecified deep veins of left lower extremity; F32.5 Major depressive disorder, single episode, in full remission; F41.9 Anxiety disorder, unspecified; N18.9 Chronic kidney disease, unspecified ==

== ENCOUNTER 2020-08-06 08:27 | Inpatient (IN) | payer MEDICARE ==
[2020-08-06] VITALS (7 sets, daily range): BP systolic 137–190; BP diastolic 60–87
[~2020-08-06] VITALS: Ht 154.9 cm; Wt 54.9 kg
[2020-08-06 08:47] LABS: BASO % 0.4 % (0.0-1.0); EOS # 0.2 10*3/uL (0.0-0.4); EOS % 1.7 % (1.0-4.0); HEMATOCRIT 41.1 % (37.0-47.0); LYMPH # 1.5 10*3/uL (1.3-4.4); LYMPH % 14.9 % (27.0-41.0); MEAN CELL VOLUME 94.7 fl (81.0-99.0); MEAN CORPUSCULAR HGB CONC 30.7 g/dl (33.0-37.0); MEAN PLATELET VOLUME 10.1 fl (9.6-12.3); MONO # 0.7 10*3/uL (0.1-1.0); MONO % 7.5 % (3.0-9.0); NEUT # 7.3 10*3/uL (2.3-7.9); NEUT % 75.1 % (47.0-73.0); PLATELET COUNT AUTOMATED 282 10*3/uL (130-400); RED BLOOD COUNT 4.34 10*6/uL (4.10-5.10); RED CELL DISTRI WIDTH 14.2 % (0-14.5); WHITE BLOOD COUNT 9.7 10*3/uL (4.8-10.8)
[2020-08-06 09:00] LABS: ACT PARTIAL THROMBO TIME 25.4 SECONDS (20.0-32.1)
[2020-08-06 09:04] LABS: ALBUMIN 3.9 gm/dl (3.1-4.5); ALKALINE PHOSPHATASE 122 U/L (45-117); BUN 37 mg/dl (7-24); CHLORIDE 110 mmol/L (98-107); CREATININE 1.91 mg/dL (0.55-1.02); POTASSIUM 4.8 mmol/L (3.5-5.1); SGOT/AST 13 IU/L (3-35); SGPT/ALT 19 U/L (12-78); SODIUM 141 mmol/L (136-145); TOTAL PROTEIN 7.5 gm/dL (6.4-8.2)
[2020-08-06 09:05] LABS: TROPONIN I < 0.015 ng/ml (<0.045)
--- NOTE | 2020-08-06 09:59 | NUR ---
PT IN BED SLEEPING IN FOWLERS POSITION RESP 18/MIN PT AWOKE EASILY STATES BREATHING IS MUCH IMPROVED PT REQUESTING BLANKET OF WHICH PT WAS GIVEN
--- NOTE | 2020-08-06 13:00 | NUR ---
A 74, admitted to , under the services of NOREEN García DO with a diagnosis of COPD EXACERBATION. Chief complaint is SHORTNESS OF BREATH. Patient arrived via stretcher from ER. Monitor applied. Initial assessment completed. Vital signs taken and recorded. NOREEN GARCÍA DO notified of admission to the unit. Orders received. See assessment for past medical history, medications and allergies. Patient and/or family oriented to unit. [address] visitation policy reviewed. Clothing/patient valuable form completed. RAIN JARAMILLO
--- NOTE | 2020-08-06 13:05 | NUR ---
PER DR COELLO, PATIENT IS TO BE MONITORED D/T TACHYCARDIA.
[2020-08-06 16:57] LABS: ABG BASE EXCESS -4.7 mmol/L (-2.0-2.0); ARTERIAL BLOOD GAS PH 7.304 (7.35-7.45)
--- NOTE | 2020-08-06 23:10 | NUR ---
Pt placed on BiPap /8 and FiO2 30%. Alarms on and audible. Pt wasnt thrilled about wearing BiPap but states she will try her hardest to wear it for as long as she can. Spo2 95%
[2020-08-07] VITALS: BP 164/77
[2020-08-07 06:07] LABS: ALBUMIN 3.2 gm/dl (3.1-4.5); CREATININE 1.83 mg/dL (0.55-1.02); FREE T4 1.03 ng/dl (0.76-1.46); POTASSIUM 4.6 mmol/L (3.5-5.1); TOTAL PROTEIN 6.3 gm/dL (6.4-8.2)
[2020-08-07 06:09] LABS: BASO % 0.1 % (0.0-1.0); EOS % 0.1 % (1.0-4.0); HEMATOCRIT 34.7 % (37.0-47.0); LYMPH # 1.3 10*3/uL (1.3-4.4); LYMPH % 16.3 % (27.0-41.0); MEAN CELL VOLUME 95.9 fl (81.0-99.0); MEAN CORPUSCULAR HGB 29.3 pg (27.0-31.0); MEAN CORPUSCULAR HGB CONC 30.5 g/dl (33.0-37.0); MEAN PLATELET VOLUME 10.6 fl (9.6-12.3); MONO # 0.8 10*3/uL (0.1-1.0); NEUT # 5.7 10*3/uL (2.3-7.9); NEUT % 73.1 % (47.0-73.0); PLATELET COUNT AUTOMATED 219 10*3/uL (130-400); RED BLOOD COUNT 3.62 10*6/uL (4.10-5.10); RED CELL DISTRI WIDTH 14.1 % (0-14.5); WHITE BLOOD COUNT 7.8 10*3/uL (4.8-10.8)
[2020-08-07 06:12] LABS: THYROID STIM HORMONE (HS) 0.454 uIU/ml (0.358-4.75)
[2020-08-07 07:06] LABS: VITAMIN D, 25-HYDROXY 56.9 ng/mL (30-100)
--- NOTE | 2020-08-07 07:50 | NUR ---
24 HR chart check completed.
[2020-08-07 08:00] VITALS: BP 154/64
--- NOTE | 2020-08-07 08:05 | NUR ---
RESTING IN BED. RESPIRATIONS EASY. LUNGS DIMINISHED WITH EXP WHEEZES. PULSE OX 93% 2L. HACKY COUGH, PATIENT STATES PROD - INFORMED OF NEED FOR SPECIMEN & SPUTUM CUP PROVIDED. MEDICATED WITH TYLENOL PER PRN ORDER FOR COMPLAINTS OF LEFT LEG PAIN RATING A 7. BLE EDEMA R>L. CALL LIGHT WITHIN REACH. WILL MONITOR
[2020-08-07 08:13] LABS: ABG BASE EXCESS -0.5 mmol/L (-2.0-2.0); ARTERIAL BLOOD GAS PH 7.331 (7.35-7.45)
--- NOTE | 2020-08-07 08:38 | NUR ---
INCRESED O2 FROM 2L TO 3L FOR SPO2 OF 89-90%
--- NOTE | 2020-08-07 10:10 | NUR ---
PATIENT'S DAUGHTER (ER NURSE) PRESENT ON FLOOR, STATES PATIENT'S CAT OF 22 YRS HAD JUST . CAT IS LIKE PATIENT'S CHILD AND STATES SHE WILL NEED SOMETHING FOR ANXIETY. ENCOURAGED DAUGHTER TO WAIT TO TELL PATIENT SHE WAS JUST PLACED BACK ON BI-PAP. DR ALEJANDRA AND RESIDENT PRESENT ON FLOOR ROUNDING AND INFORMED OF SITUATION AND REQUEST FOR "SOMETHING FOR ANXIETY." DR ALEJANDRA TO ENTER ORDERS
--- NOTE | 2020-08-07 11:29 | NUR ---
PATIENT NAUSEATED. REMOVED SELF FROM BI-PAP. O2 IN USE. DR ALEJANDRA INFORMED AND ORDERS RECEIVED FOR ZOFRAN - MEDICATED PER PRN ORDER. WILL MONITOR
--- NOTE | 2020-08-07 11:36 | NUR ---
medicated with 1 time dose of ativan per prn order to assist with anxiety of pet's . will monitor
[2020-08-07 12:00] VITALS: BP 172/78
--- NOTE | 2020-08-07 12:15 | NUR ---
meds effective. sleeping. respirations easy. vss. call light within reach
--- NOTE | 2020-08-07 14:30 | NUR ---
CONTINUES TO SLEEP. O2 IN USE. CALL LIGHT WITHIN REACH
[2020-08-07 16:00] VITALS: BP 140/83
--- NOTE | 2020-08-07 16:51 | NUR ---
MEDICATED WITH TYLENOL PER PRN ORDER FOR COMPLAINTS OF LEFT LEG PAIN RATING A 7. CALL LIGHT WITHIN REACH. WILL MONITOR
--- NOTE | 2020-08-07 17:30 | NUR ---
MEDS APPEAR EFFECTIVE. SLEEPING. RESPIRATIONS EASY. O2 IN USE. CALL LIGHT WITHIN REACH
--- NOTE | 2020-08-07 19:26 | NUR ---
24 HR CHART CHECK COMPLETE.
[2020-08-07 20:00] VITALS: BP 153/74
--- NOTE | 2020-08-07 22:58 | NUR ---
PT PLACED ON NIV AT THIS TIME
[2020-08-08] VITALS: BP 155/70
[2020-08-08 06:26] LABS: BASO % 0.4 % (0.0-1.0); EOS % 0.4 % (1.0-4.0); HEMATOCRIT 39.7 % (37.0-47.0); LYMPH % 18.8 % (27.0-41.0); MEAN CELL VOLUME 97.1 fl (81.0-99.0); MEAN CORPUSCULAR HGB 29.3 pg (27.0-31.0); MEAN CORPUSCULAR HGB CONC 30.2 g/dl (33.0-37.0); MEAN PLATELET VOLUME 10.4 fl (9.6-12.3); MONO % 9.2 % (3.0-9.0); NEUT # 7.4 10*3/uL (2.3-7.9); NEUT % 70.9 % (47.0-73.0); PLATELET COUNT AUTOMATED 247 10*3/uL (130-400); RED BLOOD COUNT 4.09 10*6/uL (4.10-5.10); RED CELL DISTRI WIDTH 14.1 % (0-14.5); WHITE BLOOD COUNT 10.4 10*3/uL (4.8-10.8)
[2020-08-08 06:36] LABS: CREATININE 1.67 mg/dL (0.55-1.02); POTASSIUM 4.5 mmol/L (3.5-5.1)
[2020-08-08 08:00] VITALS: BP 155/71
--- NOTE | 2020-08-08 09:00 | NUR ---
Welt Rander in to talk to patient. Patient states lives at home with son. There are 2 steps in the home. Physician: [facility] services: non at present Patient's level of ADLs: INDEPENDENT Patient has working utilities: all working DME: walker and nebulizer Follow-up physician's appointment after d/c: will be made by hospitalist nurse director upon discharge Does patient want to access PORTAL?: no Discharge plan discussed with patient, she states she lives at home with her son, she has 2 steps to get into her home then it is all one level, she states she has a walker but rarely uses it, she was independent in adls and ambulation until she became sick, no home oxygen, discussed with her a discharge plan including a short term detention for 5 days of rehab and 24 hour care prior to returning home, she stated she would like to return home, but if she needed to go to a SNF she would choose [facility] suites. if she was able to return home she would like [facility], case management will follow and make appropriate referral. MARIANNE NORMAN
[2020-08-08 12:00] VITALS: BP 146/57
[2020-08-08 12:53] LABS: ABG BASE EXCESS -0.2 mmol/L (-2.0-2.0); ARTERIAL BLOOD GAS PH 7.342 (7.35-7.45)
--- NOTE | 2020-08-08 13:10 | NUR ---
NEW IV STARTED IN LEFT WRIST 24 ESA ON FIRST ATTEMPT, GOOD BLOOD RETURN FLUSHED WITHOUT DIFFICULTY, PT TOLERATED WELL
--- NOTE | 2020-08-08 13:35 | NUR ---
Occupational Therapy evaluation completed on 4 with full eval to follow. Precautions include fall risk, limited activity tolerance, new oxygen use, IV UE, low complexity level 33991. Recommend OT per pOC and SNF v.s. home care depending upon progress while in the hospital. Thank you for this referral. Renetta Cyr OTR/L
--- NOTE | 2020-08-08 13:35 | NUR ---
PHYSICAL THERAPY Physical Therapy evaluation completed on 4E with full evaluation to follow. Low complexity skilled PT services per chart review and PT evaluation, [id number]. Recommend physical therapy per plan of care and Home Health services upon discharge. Thank you for this referral.
--- NOTE | 2020-08-08 13:43 | NUR ---
NOTIFIED OF LEVAQUIN MAKING PATIENTS ARM ITCHY, WITH REDNESS FOLLOWING VENOUS PATH UP ARM. IV STOPPED AD COOL COMPRESS APPLIED
[2020-08-08 16:00] VITALS: BP 147/59
--- NOTE | 2020-08-08 19:40 | NUR ---
24 HR CHART CHECK COMPLETE.
[2020-08-08 20:00] VITALS: BP 146/73
[2020-08-09] VITALS: BP 154/70
[2020-08-09 08:00] VITALS: BP 116/49
--- NOTE | 2020-08-09 08:01 | NUR ---
OT NOTE Upon arrival pt was laying supine in bed with head elevated agreeable to 20 minute OT session. Identified by name and date of with no complaints. Pt presented to OT with 3L O2 via NC throughout session. Transfer supine to EOB SBA. Max A to blayne B socks pt stated " I use a sock aide at home". Sit-stand from EOB CGA however when standing pt became off balance due to retrograde posture requiring Con to correct. Functional mobility from EOB to bathroom, back to recliner CGA with w/w for UB support and safety. Transferring on and off commode CGA with w/w and grab bar. Clothing management and hygiene both CGA. while standing at recliner pts balance was challenged by weight shifting/crossing midline in all planes, balance good-. Pt left in recliner with call light in reach. Continue with POC when able. ZOEY Parham/LISHA Quiles/Blanca
--- NOTE | 2020-08-09 08:20 | NUR ---
PHYSICAL THERAPY Patient seen this am 1;1 for therapy visit and was supine in bed following breakfast, upon therapist arrival. Patient identified by name / and was very pleasant, voicing no new c/o's at this time. OT wellness assistant was present this morning for observation only as patient transfers supine to sit EOB with MIN A, tolerating a minute or so static EOB sit to collect herself. Patient completed sit to stand transfer, CGA, then ambulated with use of wh walker, CGA, 25'x 2 to bathroom, demonstrating slow, cautious step sequence. Patient presented with continuous O2 via NC and needed several v/c's to safely navigate around extended O2 hose to prevent getting tangled up in, stepping on or trippping over hose. Patient also demonstrated increased fatigue upon return to bedside chair. Following brief seated rest break, patient performed seated B LE therex, all planes, x 15 reps each to increase LE strength without c/o. Patient remained in chair with call light, tray table and telephone. Will continue per POC as tolerated, total treatment time 23 minutes. Mazin Guillaume, GOLF CLUB MANAGER
--- NOTE | 2020-08-09 08:26 | NUR ---
Patient requesting a referral to rehab suites, waiting on review/acceptance.
--- NOTE | 2020-08-09 08:51 | NUR ---
PT C/O OF GENERAL DISCOMFORT RATING 02/18 PRN TYLENOL GIVEN PER REQUEST
--- NOTE | 2020-08-09 09:00 | NUR ---
case management visits with patient, again discussed a discharge plan and she stated she would like to be referred to [facility]. urban planner will refer patient. case management will follow
--- NOTE | 2020-08-09 09:30 | NUR ---
PER PT PRN TYLENOL WAS EFFECTIVE
[2020-08-09 12:00] VITALS: BP 152/68
[2020-08-09 16:00] VITALS: BP 138/56
--- NOTE | 2020-08-09 19:36 | NUR ---
24 HR chart check completed.
[2020-08-09 20:00] VITALS: BP 150/62
--- NOTE | 2020-08-09 20:33 | NUR ---
RESTING IN BED WATCHING TV. RESPIRATIONS EASY. LUNGS DIMINISHED WITH DAINT EXP WHEEZES. PULSE OX 98% 2L HUMIDIFIED. PROD COUGH, SPUTUM SPECIMEN OBTAINED AND SENT FOR CULTURE. TRACE BLE EDEMA. MEDICATED WITH TYLENOL PER PRN ORDER TO ASSIST WITH GENERALIZED DISCOMFORT AND ASSIST WITH SLEEP. CALL LIGHT WITHIN REACH. WILL MONITOR
--- NOTE | 2020-08-09 21:10 | NUR ---
STATES RELIEF FROM EARLIER TYLENOL. RESTING IN BED. NO DISTRESS NOTED. RESPIRATIONS EASY. CALL LIGHT WITHIN REACH. NO FURTHER VOICED COMPLAINTS
--- NOTE | 2020-08-09 23:24 | NUR ---
PLACED PATIENT ON BIPAP FOR HS
[2020-08-10] VITALS: BP 150/66
--- NOTE | 2020-08-10 | NUR ---
SLEEPING. NO DISTRESS NOTED. RESPIRATIONS EASY. VSS. BI-PAP IN USE. CALL LIGHT WITHIN REACH
--- NOTE | 2020-08-10 00:55 | NUR ---
PATIENT REMOVED SELF FROM BI-PAP STATING THAT SHE CAN NO LONGER TOLERATE IT. PLACED ON O2 2L NASAL CANNULA. PATIENT ASSISTED TO BR AND RETURNED TO BED, POSITIONED FOR COMFORT. CALL LIGHT WITHIN REACH
--- NOTE | 2020-08-10 04:00 | NUR ---
SLEEPING. O2 IN USE. CALL LIGHT WITHIN REACH
--- NOTE | 2020-08-10 06:00 | NUR ---
SLEPT THROUGHOUT NIGHT WITH NO DISTRESS NOTED. RESPIRATIONS EASY. O2 IN USE. CALL LIGHT WITHIN REACH. NO VOICED COMPLAINTS THIS SHIFT
--- NOTE | 2020-08-10 06:58 | NUR ---
Patient has been accepted to rehab suites, hospital exemption complete, 3 night stay complete, patient is ok to go when medically stable for discharge.
[2020-08-10 08:00] VITALS: BP 146/64
--- NOTE | 2020-08-10 09:00 | NUR ---
case management visits with patient, she will be discharged to [facility] today. paraplanner will make transportation arrangements
--- NOTE | 2020-08-10 09:15 | NUR ---
OT NOTE Upon arrival pt was lying supine in bed with head elevated agreeable to 15 minute OT session. Identified by name and date of with no complaints.Pt presented to OT with 2L of O2 via NC whole session. Transfer supine to EOB SBA. MaxA to blayne socks pt stated "i use a socks aide at home". Sit-stand from EOB SBA requirinf verbal prompts to use w/w for support and safety. Functional mobility from EOB to bathroom, to recliner CGA with w/w. Pt stood sink side unsupported to wash hands and brush hair at CGA, standing balance good-. Throughout mobility pt required multiple verbal prompts for walker safety, O2 and I.V. tubing safety. With exertion O2 sats read 86% on 2L and a heart rate of 102 BPM. after approx 3 minutes O2 sats kinza to 97% at 2L and a heart rate of 93bpm. Pt left in recliner with call light in reach. P Continue with POC when able. ZOEY Parham/LISHA Quiles/Blanca
[2020-08-10] MEDS ORDERED: MUCUS RELIEF600 MG PO (09:44)
[2020-08-10] MEDS ORDERED: ZITHROMAX500 MG PO (09:44)
[2020-08-10] MEDS ORDERED: OMNICEF300 MG PO (09:44)
--- NOTE | 2020-08-10 10:32 | NUR ---
Patient is discharged to rehab suites. NH, nursing/animal warden and daughter Julia all notified. Discharge orders and summary faxed to facility.
--- NOTE | 2020-08-10 11:46 | NUR ---
PHYSICAL THERAPY TREATMENT TIME: IN 09:03 AM 20 minutes PRESENTATION: Patient presented to therapy in supine Head of bed was elevated Bed alarm was on Informed consent given by patient Identified by name and on wristband 2 liters of spO2 VIA NASAL CANULA IV infusing COMPLAINTS: NO COMPLAINTS WB STATUS: No wt. bearing restrictions ASSISTIVE DEVICE: Wh Walker TRANSFERS: Supine <> sit EOB: SBA Sit EOB: SBA STS <> EOB: SBA - CGA STS <> COMMODE: SBA - CGA STS <> BEDSIDE CHAIR: [facility] TREATMENT: GAIT with AIR SEALING TECHNICIAN for 20' x 2 with 2 liters of spO2 VIA nasal canula Bilateral LE ther ex x 15 reps each in all planes of movement including LAQS, MARCHES, HIP ABDUCTION, HEEL/TOE RAISES X 15 REPS EACH for strengthening. 5 Xs STS in 13 seconds total RESPONSE TO TREATMENT: Patient tolerated treatment well with O2 SAT measured at 86% and pulse at 99 post ambulating 20' x 2. Patient recovered quickly to 96% within 1 minute CONCLUSION: Patient was left in sitting position in bedside chair with LEs in low position Chair alarm tested and attached to patient Call light within reach Tray table in front of patient MARIJA COREAS CLAY MACHINE OPERATOR
[2020-08-10 12:00] VITALS: BP 161/63
--- NOTE | 2020-08-10 12:42 | NUR ---
PATIENT TO DISCHARGE TO REHAB SUITES TODAY. DAUGHTER MILA AWARE.
--- NOTE | 2020-08-11 07:06 | NUR ---
OCCUPATIONAL THERAPY CO-SIGN I approve of the Occupational Therapy notes written above. CESAR PAIZ, OTR/L
--- NOTE | 2020-08-11 09:53 | NUR ---
PHYSICAL THERAPY CO-SIGN I approve of the Physical Therapy notes written above. Stacey Carter PT
== END 2020-08-10 12:42 | disposition other institution (70) | DRG 871 ==
LOC: ED 08:27 → EDHOLD 11:09 → 4E 11:09
PROVIDERS: Emergency Medicine; Internal Medicine; Internal Medicine Critical Care Medicine; ADMIT Internal Medicine; ATTEND Internal Medicine
DX: A41.9 Sepsis, unspecified organism (principal); N17.0 Acute kidney failure with tubular necrosis; J18.9 Pneumonia, unspecified organism; J96.21 Acute and chronic respiratory failure with hypoxia; J96.22 Acute and chronic respiratory failure with hypercapnia; J44.1 Chronic obstructive pulmonary disease with (acute) exacerbation; E44.0 Moderate protein-calorie malnutrition; I82.512 Chronic embolism and thrombosis of left femoral vein; I82.532 Chronic embolism and thrombosis of left popliteal vein; I82.552 Chronic embolism and thrombosis of left peroneal vein; J44.0 Chronic obstructive pulmonary disease with (acute) lower respiratory infection; I48.21 Permanent atrial fibrillation; J20.9 Acute bronchitis, unspecified; N18.3 Chronic kidney disease, stage 3 (moderate); E11.65 Type 2 diabetes mellitus with hyperglycemia; F32.9 Major depressive disorder, single episode, unspecified; F17.210 Nicotine dependence, cigarettes, uncomplicated; R65.20 Severe sepsis without septic shock; I16.0 Hypertensive urgency; E11.22 Type 2 diabetes mellitus with diabetic chronic kidney disease; Z20.828 Contact with and (suspected) exposure to other viral communicable diseases; R74.8 Abnormal levels of other serum enzymes; I12.9 Hypertensive chronic kidney disease with stage 1 through stage 4 chronic kidney disease, or unspecified chronic kidney disease; Z79.01 Long term (current) use of anticoagulants; Z90.49 Acquired absence of other specified parts of digestive tract; Z83.3 Family history of diabetes mellitus; Z80.8 Family history of malignant neoplasm of other organs or systems; Z79.82 Long term (current) use of aspirin; Z79.899 Other long term (current) drug therapy; Z68.22 Body mass index [BMI] 22.0-22.9, adult

== ENCOUNTER → 2021-01-11 | Outpatient (CLI) | payer MEDICARE ==
[~2021-01-11] MED LIST changes: +AMLODIPINE BESYL5 MG PO; +DOXYCYCLINE100 MG PO; +METOPROLOL SUCC50 M1 PO; +MUCUS RELIEF600 MG PO; +ZITHROMAX500 MG PO
[2021-01-11 16:29] LABS: ACT PARTIAL THROMBO TIME 22.2 SECONDS (20.0-32.1)
== END | disposition home or self-care (01) ==
LOC: RESCLI 16:10 → LAB 16:10 → RESCLI 01-12 08:14
PROVIDERS: Physician Assistant; ATTEND Internal Medicine Nephrology
DX: I12.9 Hypertensive chronic kidney disease with stage 1 through stage 4 chronic kidney disease, or unspecified chronic kidney disease (principal); E11.22 Type 2 diabetes mellitus with diabetic chronic kidney disease; N18.9 Chronic kidney disease, unspecified

== ENCOUNTER → 2021-01-12 | Outpatient (CLI) | payer MEDICARE ==
[2021-01-12 11:05] LABS: BASO % 0.3 % (0.0-1.0); EOS # 0.3 10*3/uL (0.0-0.4); EOS % 3.6 % (1.0-4.0); HEMATOCRIT 34.3 % (37.0-47.0); LYMPH % 10.6 % (27.0-41.0); MEAN CELL VOLUME 92.5 fl (81.0-99.0); MEAN CORPUSCULAR HGB 28.3 pg (27.0-31.0); MEAN CORPUSCULAR HGB CONC 30.6 g/dl (33.0-37.0); MEAN PLATELET VOLUME 9.7 fl (9.6-12.3); MONO # 0.8 10*3/uL (0.1-1.0); MONO % 8.4 % (3.0-9.0); NEUT % 76.4 % (47.0-73.0); PLATELET COUNT AUTOMATED 243 10*3/uL (130-400); RED BLOOD COUNT 3.71 10*6/uL (4.10-5.10); RED CELL DISTRI WIDTH 14.4 % (0-14.5); WHITE BLOOD COUNT 9.2 10*3/uL (4.8-10.8)
[2021-01-12 11:32] LABS: ALBUMIN 3.5 gm/dl (3.1-4.5); CREATININE 1.75 mg/dL (0.55-1.02); POTASSIUM 4.2 mmol/L (3.5-5.1); TOTAL PROTEIN 7.1 gm/dL (6.4-8.2)
== END | disposition home or self-care (01) ==
LOC: RESCLI 10:39
PROVIDERS: ATTEND Internal Medicine Nephrology
DX: J44.9 Chronic obstructive pulmonary disease, unspecified (principal); F41.9 Anxiety disorder, unspecified; F32.9 Major depressive disorder, single episode, unspecified; I82.502 Chronic embolism and thrombosis of unspecified deep veins of left lower extremity; I12.9 Hypertensive chronic kidney disease with stage 1 through stage 4 chronic kidney disease, or unspecified chronic kidney disease; N18.9 Chronic kidney disease, unspecified; E11.22 Type 2 diabetes mellitus with diabetic chronic kidney disease; R11.0 Nausea; J30.2 Other seasonal allergic rhinitis; F17.210 Nicotine dependence, cigarettes, uncomplicated; I48.91 Unspecified atrial fibrillation; E55.9 Vitamin D deficiency, unspecified; Z79.82 Long term (current) use of aspirin; Z79.899 Other long term (current) drug therapy; Z90.49 Acquired absence of other specified parts of digestive tract; Z96.641 Presence of right artificial hip joint

== ENCOUNTER 2021-04-08 21:24 | Inpatient (IN) | payer MEDICARE ==
[~2021-04-08] VITALS: Ht 157.4 cm; Wt 61.8 kg
[2021-04-08 21:35] VITALS: BP 172/86
[2021-04-08 22:10] VITALS: BP 157/58
[2021-04-08 22:21] LABS: BASO % 0.2 % (0.0-1.0); EOS # 0.5 10*3/uL (0.0-0.4); EOS % 5.7 % (1.0-4.0); HEMATOCRIT 30.7 % (37.0-47.0); LYMPH # 0.9 10*3/uL (1.3-4.4); LYMPH % 10.1 % (27.0-41.0); MEAN CELL VOLUME 94.5 fl (81.0-99.0); MEAN CORPUSCULAR HGB CONC 29.6 g/dl (33.0-37.0); MEAN PLATELET VOLUME 9.1 fl (9.6-12.3); MONO # 0.7 10*3/uL (0.1-1.0); MONO % 8.1 % (3.0-9.0); NEUT # 6.8 10*3/uL (2.3-7.9); NEUT % 75.3 % (47.0-73.0); PLATELET COUNT AUTOMATED 234 10*3/uL (130-400); RED BLOOD COUNT 3.25 10*6/uL (4.10-5.10); RED CELL DISTRI WIDTH 15.3 % (0-14.5)
[2021-04-08 22:40] VITALS: BP 163/60
[2021-04-08 22:40] LABS: ALBUMIN 3.4 gm/dl (3.1-4.5); CREATININE 1.96 mg/dL (0.55-1.02); POTASSIUM 5.9 mmol/L (3.5-5.1); TOTAL PROTEIN 6.9 gm/dL (6.4-8.2)
[2021-04-08 23:49] LABS: BILIRUBIN Negative (Negative); BLOOD Negative (Negative); CLARITY Clear (Clear); COLOR Yellow (Yellow); GLUCOSE Negative (Negative); KETONE Negative (Negative); LEUKO ESTERASE Trace (Negative); NITRITE Negative (Negative); UROBILINOGEN 0.2 E.U./dl (0.0-1.0)
[2021-04-09 01:10] VITALS: BP 151/50
[2021-04-09 03:10] VITALS: BP 175/59
[2021-04-09] MEDS ORDERED: HYDROCHLOROTH12.5 M3 PO (03:30)
[2021-04-09] MEDS ORDERED: METOPROLOL SUCC25 M2 PO (03:31)
[2021-04-09 06:15] LABS: BASO % 0.3 % (0.0-1.0); EOS # 0.5 10*3/uL (0.0-0.4); EOS % 6.3 % (1.0-4.0); HEMATOCRIT 29.3 % (37.0-47.0); LYMPH % 13.4 % (27.0-41.0); MEAN CELL VOLUME 95.4 fl (81.0-99.0); MEAN CORPUSCULAR HGB CONC 29.4 g/dl (33.0-37.0); MEAN PLATELET VOLUME 9.4 fl (9.6-12.3); MONO # 0.6 10*3/uL (0.1-1.0); MONO % 8.3 % (3.0-9.0); NEUT # 5.2 10*3/uL (2.3-7.9); NEUT % 71.2 % (47.0-73.0); PLATELET COUNT AUTOMATED 219 10*3/uL (130-400); RED BLOOD COUNT 3.07 10*6/uL (4.10-5.10); RED CELL DISTRI WIDTH 15.5 % (0-14.5); WHITE BLOOD COUNT 7.3 10*3/uL (4.8-10.8)
[2021-04-09 06:38] LABS: ALBUMIN 3.4 gm/dl (3.1-4.5); POTASSIUM 5.8 mmol/L (3.5-5.1)
[2021-04-09 06:52] LABS: CREATININE 1.94 mg/dL (0.55-1.02); THYROID STIM HORMONE (HS) 1.19 uIU/ml (0.358-4.75); TOTAL PROTEIN 6.5 gm/dL (6.4-8.2)
[2021-04-09 08:00] VITALS: BP 157/64
[2021-04-09 12:00] VITALS: BP 153/69
[2021-04-09 16:00] VITALS: BP 158/86
[2021-04-09 20:00] VITALS: BP 158/76
[2021-04-10] VITALS: BP 155/60
[2021-04-10 08:00] VITALS: BP 159/89; BP 161/63
[2021-04-10 10:14] LABS: BASO % 0.4 % (0.0-1.0); EOS # 0.5 10*3/uL (0.0-0.4); HEMATOCRIT 29.6 % (37.0-47.0); LYMPH # 0.7 10*3/uL (1.3-4.4); LYMPH % 10.5 % (27.0-41.0); MEAN CELL VOLUME 95.5 fl (81.0-99.0); MEAN CORPUSCULAR HGB 28.4 pg (27.0-31.0); MEAN CORPUSCULAR HGB CONC 29.7 g/dl (33.0-37.0); MEAN PLATELET VOLUME 9.6 fl (9.6-12.3); MONO # 0.5 10*3/uL (0.1-1.0); MONO % 7.5 % (3.0-9.0); NEUT % 74.3 % (47.0-73.0); PLATELET COUNT AUTOMATED 211 10*3/uL (130-400); RED CELL DISTRI WIDTH 15.4 % (0-14.5); WHITE BLOOD COUNT 6.8 10*3/uL (4.8-10.8)
[2021-04-10 10:26] LABS: ALBUMIN 3.1 gm/dl (3.1-4.5); CREATININE 1.72 mg/dL (0.55-1.02); POTASSIUM 4.8 mmol/L (3.5-5.1)
[2021-04-10 12:00] VITALS: BP 160/67
[2021-04-10 16:00] VITALS: BP 167/64
[2021-04-10 20:00] VITALS: BP 164/80; BP 172/67
[2021-04-11] VITALS: BP 160/78; BP 172/61
[2021-04-11 07:59] VITALS: BP 162/84
[2021-04-11 12:00] VITALS: BP 160/80
[2021-04-11 16:00] VITALS: BP 153/54
[2021-04-11 20:00] VITALS: BP 157/69
[2021-04-12] VITALS: BP 150/57
[2021-04-12 08:00] VITALS: BP 184/71
[2021-04-12 11:36] LABS: BASO % 0.4 % (0.0-1.0); EOS # 0.6 10*3/uL (0.0-0.4); EOS % 7.4 % (1.0-4.0); HEMATOCRIT 29.7 % (37.0-47.0); LYMPH # 0.8 10*3/uL (1.3-4.4); LYMPH % 10.3 % (27.0-41.0); MEAN CELL VOLUME 94.9 fl (81.0-99.0); MEAN CORPUSCULAR HGB 28.1 pg (27.0-31.0); MEAN CORPUSCULAR HGB CONC 29.6 g/dl (33.0-37.0); MEAN PLATELET VOLUME 9.5 fl (9.6-12.3); MONO # 0.7 10*3/uL (0.1-1.0); MONO % 8.5 % (3.0-9.0); NEUT # 5.7 10*3/uL (2.3-7.9); PLATELET COUNT AUTOMATED 205 10*3/uL (130-400); RED BLOOD COUNT 3.13 10*6/uL (4.10-5.10); RED CELL DISTRI WIDTH 15.5 % (0-14.5); WHITE BLOOD COUNT 7.9 10*3/uL (4.8-10.8)
[2021-04-12 12:00] VITALS: BP 141/60
[2021-04-12 12:00] LABS: CREATININE 1.81 mg/dL (0.55-1.02)
[2021-04-12 16:00] VITALS: BP 146/66
[2021-04-12 20:30] VITALS: BP 147/60
[2021-04-13] VITALS: BP 146/69
[2021-04-13 08:00] VITALS: BP 170/73
[2021-04-13 12:00] VITALS: BP 131/60
[2021-04-13 16:00] VITALS: BP 130/69
[2021-04-13 20:00] VITALS: BP 145/75
[2021-04-14] VITALS: BP 155/62
[2021-04-14 06:09] LABS: CREATININE 1.98 mg/dL (0.55-1.02); POTASSIUM 4.9 mmol/L (3.5-5.1)
[2021-04-14 06:14] LABS: BASO % 0.5 % (0.0-1.0); EOS # 0.8 10*3/uL (0.0-0.4); EOS % 9.5 % (1.0-4.0); HEMATOCRIT 30.9 % (37.0-47.0); LYMPH # 1.3 10*3/uL (1.3-4.4); LYMPH % 14.4 % (27.0-41.0); MEAN CELL VOLUME 93.1 fl (81.0-99.0); MEAN CORPUSCULAR HGB CONC 30.1 g/dl (33.0-37.0); MONO # 0.9 10*3/uL (0.1-1.0); MONO % 10.3 % (3.0-9.0); NEUT # 5.6 10*3/uL (2.3-7.9); PLATELET COUNT AUTOMATED 261 10*3/uL (130-400); RED BLOOD COUNT 3.32 10*6/uL (4.10-5.10); RED CELL DISTRI WIDTH 15.7 % (0-14.5); WHITE BLOOD COUNT 8.7 10*3/uL (4.8-10.8)
[2021-04-14 08:09] VITALS: BP 131/56
[2021-04-14] MEDS ORDERED: METOPROLOL SUCC50 M1 PO (11:18)
[2021-04-14] MEDS ORDERED: AMLODIPINE BESYL5 MG PO (11:18)
[2021-04-14] MEDS ORDERED: DOXYCYCLINE100 M3 PO (11:18)
[2021-04-14 11:51] VITALS: BP 158/65
== END 2021-04-14 13:30 | DRG 562 ==
LOC: ED 21:24 → EDHOLD 04-09 00:36 → 5E 04-09 00:36
PROVIDERS: Family Medicine; Internal Medicine; Physical Therapist; Student in an Organized Health Care Education/Training Program; ADMIT Student in an Organized Health Care Education/Training Program; ATTEND Student in an Organized Health Care Education/Training Program
DX: S52.124A Nondisplaced fracture of head of right radius, initial encounter for closed fracture (principal); N17.0 Acute kidney failure with tubular necrosis; R65.10 Systemic inflammatory response syndrome (SIRS) of non-infectious origin without acute organ dysfunction; J96.11 Chronic respiratory failure with hypoxia; I82.592 Chronic embolism and thrombosis of other specified deep vein of left lower extremity; N18.4 Chronic kidney disease, stage 4 (severe); S50.11XA Contusion of right forearm, initial encounter; E11.22 Type 2 diabetes mellitus with diabetic chronic kidney disease; E87.8 Other disorders of electrolyte and fluid balance, not elsewhere classified; I12.9 Hypertensive chronic kidney disease with stage 1 through stage 4 chronic kidney disease, or unspecified chronic kidney disease; J44.9 Chronic obstructive pulmonary disease, unspecified; S00.93XA Contusion of unspecified part of head, initial encounter; E87.5 Hyperkalemia; D64.9 Anemia, unspecified; E11.65 Type 2 diabetes mellitus with hyperglycemia; Z20.822 Contact with and (suspected) exposure to COVID-19; F32.5 Major depressive disorder, single episode, in full remission; Z66 Do not resuscitate; Z51.5 Encounter for palliative care; W18.39XA Other fall on same level, initial encounter; Y93.89 Activity, other specified; Y92.098 Other place in other non-institutional residence as the place of occurrence of the external cause; Y99.8 Other external cause status; Z88.1 Allergy status to other antibiotic agents; Z90.49 Acquired absence of other specified parts of digestive tract; Z87.891 Personal history of nicotine dependence; Z83.3 Family history of diabetes mellitus; Z80.8 Family history of malignant neoplasm of other organs or systems; Z99.81 Dependence on supplemental oxygen; Z79.82 Long term (current) use of aspirin; Z79.899 Other long term (current) drug therapy

== ENCOUNTER → 2021-05-01 | Outpatient (CLI) | payer MEDICARE ==
[~2021-05-01] MED LIST changes: +HYDROCHLOROTH12.5 M3 PO
== END | disposition home or self-care (01) ==
LOC: RAD 00:44
PROVIDERS: ATTEND Orthopaedic Surgery
DX: S52.124A Nondisplaced fracture of head of right radius, initial encounter for closed fracture (principal); X58.XXXA Exposure to other specified factors, initial encounter; Y93.89 Activity, other specified; Y92.89 Other specified places as the place of occurrence of the external cause; Y99.8 Other external cause status